=== PATIENT | female | born 1960 | race Caucasian/White ===

== ENCOUNTER 2017-05-20 10:17 | Emergency (ER) | payer OTHER ==
[2017-05-20] MEDS ORDERED: LORazepam 2 MG/ML INJ IVP ONE (11:00)
--- NOTE | 2017-05-20 11:04 | EDPHY ---
H & P Time Seen by Provider: 05/20/17 10:39 HPI/ROS: CHIEF COMPLAINT: Seizure HISTORY OF PRESENT ILLNESS: 56-year-old female with alcoholism presents with a generalized seizure. Last alcoholic beverage was 3-4 days ago. This morning she was sitting with her boyfriend and had a witnessed generalized seizure. She did not hurt herself and feels back to her baseline mental status. She has a history of prior alcohol withdrawal seizures. REVIEW OF SYSTEMS: Constitutional: No fever, no chills Eyes: No visual changes ENT: No sore throat Respiratory: No cough, no shortness of breath Cardiac: No chest pain Gastrointestinal: No nausea, no vomiting, no abdominal pain Genitourinary: No hematuria, no dysuria Musculoskeletal: No leg pain or swelling Skin: No rash Neurological: No headache, no weakness Psychiatric: No depression Past Medical/Surgical History: Alcoholism Social History: Single Smoking Status: Former smoker Physical Exam: General Appearance: Alert, pleasant Eyes: Pupils equal and round, no conjunctival pallor or injection ENT, Mouth: Mucous membranes moist Neck: Normal inspection Respiratory: Lungs are clear to auscultation Cardiovascular: Regular rate and rhythm Gastrointestinal: Abdomen is soft and nontender Neurological: Alert, oriented x3, mild resting tremor of the upper extremities , cranial nerves II through XII intact, motor 5/5, sensory intact to light touch , normal gait Skin: Warm and dry, no rash Extremities: Nontender, no pedal edema Psychiatric: Mood and affect normal Constitutional: Initial Vital Signs Temperature (C) 37.1 C 05/20/17 10:21 Heart Rate 101 H 05/20/17 10:21 Blood Pressure 138/95 H 05/20/17 10:21 O2 Sat (%) 90 L 05/20/17 10:21 O2 Delivery Mode Room Air Allergies/Adverse Reactions: No Allergies [NKA] Allergy (Unknown, Verified 01/27/12 12:57) Unknown Home Medications: Medication Instructions Recorded Disulfiram [Antabuse] 500 mg PO 06/21/12 FLUoxetine [Prozac 10 MG (RX)] 06/21/12 LORazepam [Ativan 1 mg (RX)] 1 mg PO TID PRN #12 tab 11/02/12 Ondansetron Odt [Zofran Odt] 4 mg PO Q4PRN PRN #4 tab 11/02/12 busPIRone HCL [Buspar] 10 mg PO 11/02/12 LORazepam [Ativan (RX)] 1 mg PO Q12 PRN #6 tab 05/20/17 Medical Decision Making ED Course/Re-evaluation: This patient presents after an alcohol withdrawal seizure. Ativan 1 mg IV given for mild tremulousness. She refuses to go to the arc and wishes to manage the alcohol withdrawal on her own. Differential Diagnosis: Differential diagnosis includes though it is not limited to status epilepticus, hypoglycemia, intracranial hemorrhage, CVA, benzodiazepine withdrawal, alcohol withdrawal, epilepsy. - Data Points Laboratory Results: Laboratory Results 05/20/17 10:00 05/20/17 10:00 05/20/17 05/20/17 10:00 10:00 WBC 10.82 10^3/uL H 10^3/uL (3.80-9.50) RBC 4.70 10^6/uL 10^6/uL (4.18-5.33) Hgb 15.2 g/dL g/dL (12.6-16.3) Hct 44.6 % % (38.0-47.0) MCV 94.9 fL fL (81.5-99.8) MCH 32.3 pg pg (27.9-34.1) MCHC 34.1 g/dL g/dL (32.4-36.7) RDW 13.2 % % (11.5-15.2) Plt Count 302 10^3/uL 10^3/uL (150-400) MPV 9.3 fL fL (8.7-11.7) Neut % (Auto) 73.6 % % (39.3-74.2) Lymph % (Auto) 20.5 % % (15.0-45.0) [place] % (Auto) 3.9 % L % (4.5-13.0) Eos % (Auto) 0.4 % L % (0.6-7.6) Baso % (Auto) 1.0 % % (0.3-1.7) Nucleat RBC Rel Count 0.0 % % (0.0-0.2) Absolute Neuts (auto) 7.97 10^3/uL H 10^3/uL (1.70-6.50) Absolute Lymphs (auto) 2.22 10^3/uL 10^3/uL (1.00-3.00) Absolute Monos (auto) 0.42 10^3/uL 10^3/uL (0.30-0.80) Absolute Eos (auto) 0.04 10^3/uL 10^3/uL (0.03-0.40) Absolute Basos (auto) 0.11 10^3/uL H 10^3/uL (0.02-0.10) Absolute Nucleated RBC 0.00 10^3/uL 10^3/uL (0-0.01) Immature Gran % 0.6 % % (0.0-1.1) Immature Gran # 0.06 10^3/uL 10^3/uL (0.00-0.10) Sodium 137 mEq/L mEq/L (134-144) Potassium 4.2 mEq/L mEq/L (3.5-5.2) Chloride 99 mEq/L mEq/L (97-110) Carbon Dioxide 15 mEq/l L mEq/l (22-31) Anion Gap 23 mEq/L H mEq/L (8-16) BUN 9 mg/dL mg/dL (7-23) Creatinine 1.0 mg/dL mg/dL (0.6-1.0) Estimated GFR 57 Glucose 153 mg/dL H mg/dL (70-100) Calcium 9.1 mg/dL mg/dL (8.5-10.4) Medications Given: Discontinued Medications Sodium Chloride (Ns) 1,000 mls @ 0 mls/hr IV ONCE ONE; Wide Open PRN Reason: Protocol Stop: 05/20/17 11:26 Last Admin: 05/20/17 11:29 Dose: 1,000 mls Lorazepam (Ativan Injection) 1 mg IVP EDNOW ONE Stop: 05/20/17 11:01 Last Admin: 05/20/17 11:09 Dose: 1 mg Departure - Departure Disposition: Home, Routine, Self-Care Clinical Impression: Alcohol withdrawal seizure Qualifiers: Complication of substance-induced condition: uncomplicated Qualified Code(s): F10.230 - Alcohol dependence with withdrawal, uncomplicated Condition: Good Instructions: Alcohol Withdrawal (ED) Referrals: Katarina Deras MD [[facility] [place] Primary Care Provider] - 2-3 days without fail Prescriptions: LORazepam [Ativan (RX)] 1 mg PO Q12 PRN #6 tab PRN Reason: Anxiety
[2017-05-20 11:09] LABS: % IMMATURE GRANULYOCYTES 0.6 % (0.0-1.1); ABSOLUTE IMMATURE GRANULOCYTES 0.06 10^3/uL (0.00-0.10); ADD DIFF? NO; ADD MORPH? NO; ADD SCAN? NO; ATYPICAL LYMPHOCYTE FLAG 0 (0-99); FRAGMENT RBC FLAG 0 (0-99); HEMATOCRIT 44.6 % (38.0-47.0); HEMOGLOBIN 15.2 g/dL (12.6-16.3); LEFT SHIFT FLG 0 (0-99); LIPEMIA HEMOLYSIS FLAG 90 (0-99); MEAN CELL HEMOGLOBIN 32.3 pg (27.9-34.1); MEAN CELL HEMOGLOBIN CONCENTR. 34.1 g/dL (32.4-36.7); MEAN CELL VOLUME 94.9 fL (81.5-99.8); MEAN PLATELET VOLUME 9.3 fL (8.7-11.7); PLATELET CLUMPS FLAG 0 (0-99); PLATELET COUNT 302 10^3/uL (150-400); RED CELL DISTRIBUTION WIDTH 13.2 % (11.5-15.2)
[2017-05-20 11:22] LABS: ANION GAP 23 mEq/L (8-16); CALCIUM 9.1 mg/dL (8.5-10.4); CARBON DIOXIDE 15 mEq/l (22-31); CHLORIDE 99 mEq/L (97-110); GLOMERULAR FILTRATION RATE 57; GLUCOSE 153 mg/dL (70-100); POTASSIUM 4.2 mEq/L (3.5-5.2); SODIUM 137 mEq/L (134-144)
[2017-05-20] MEDS ORDERED: NS 1,000 ML IV ONE (11:25)
[2017-05-20 12:58] VITALS: BP 166/88; PULSE 87; RESP 18; TEMP 98.4; O2SAT 98
== END 2017-05-20 12:57 | disposition home or self-care (01) ==
LOC: EDUNIT#
DX: R56.9 Unspecified convulsions (principal); F10.230 Alcohol dependence with withdrawal, uncomplicated; E86.9 Volume depletion, unspecified; Z87.891 Personal history of nicotine dependence
CPT/HCPCS: 96374; J2060

== ENCOUNTER 2017-06-15 14:08 | Observation (INO) | payer OTHER ==
--- NOTE | 2017-06-15 14:51 | CPEKG ---
Heart Rate: 93 RR Interval: 645 P-R Interval: 176 QRSD Interval: 84 QT Interval: 384 QTC Interval: 478 P [place]: 37 QRS [place]: -20 T Wave [place]: 33 EKG Severity - ABNORMAL ECG - EKG Impression: SINUS RHYTHM Electronically Signed By: Rodríguez Gutiérrez 15-Jun-2017 18:55:04
[2017-06-15] MEDS ORDERED: LIDOCAINE 2% VISCOUS 15 ML UDCUP PO ONE (14:57)
[2017-06-15] MEDS ORDERED: MAG HYDROX/AL HYDROX/SIMETH 30 ML UDCUP PO ONE (14:57)
[2017-06-15] MEDS ORDERED: HYOSCYAMINE SULFATE 0.125 MG TAB PO ONE (14:57)
--- NOTE | 2017-06-15 15:22 | EDPHY ---
H & P Stated Complaint: CP since 0430 this AM Time Seen by Provider: 06/15/17 14:53 HPI/ROS: CHIEF COMPLAINT: Chest pain HISTORY OF PRESENT ILLNESS: The patient presents to the ED with chest pain which has been constant since 4 o'clock this morning. The patient reports her pain is worsened with swallowing. She denies any history of exertional chest pain or shortness of breath. 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 The patient has no significant past medical history. There is a history of coronary artery disease in the family. The patient does not smoke. She denies any abdominal pain, vomiting or diarrhea. The patient did take Tums prior to arrival without improvement of her symptoms. REVIEW OF SYSTEMS: A comprehensive 10 point review of systems is otherwise negative aside from elements mentioned in the history of present illness. Source: Patient Exam Limitations: No limitations - Medical/Surgical History Hx Asthma: No Hx Chronic Respiratory Disease: No Hx Diabetes: No Hx Cardiac Disease: No Hx Renal Disease: No Hx Cirrhosis: No Hx Alcoholism: Yes Hx HIV/AIDS: No Hx Splenectomy or Spleen Trauma: No Other PMH: etoh, last drink april 2017 - Social History Smoking Status: Former smoker - Physical Exam Exam: General Appearance: Alert, no distress Eyes: Pupils equal and round no pallor or injection ENT, Mouth: Mucous membranes moist Respiratory: There are no retractions, lungs are clear to auscultation Cardiovascular: Regular rate and rhythm Gastrointestinal: Abdomen is soft and nontender, no masses, bowel sounds normal Neurological: A&O, normal motor function, normal sensory exam, normal cranial nerves Skin: Warm and dry, no rashes Musculoskeletal: Neck is supple nontender Extremities: symmetrical, full range of motion Constitutional: Initial Vital Signs Temperature (C) 37.4 C 06/15/17 14:11 Heart Rate 95 06/15/17 14:11 Respiratory Rate 18 06/15/17 14:11 Blood Pressure 141/102 H 06/15/17 14:11 O2 Sat (%) 94 06/15/17 14:11 O2 Delivery Mode Room Air Allergies/Adverse Reactions: No Allergies [NKA] Allergy (Unknown, Verified 01/27/12 12:57) Unknown Home Medications: Medication Instructions Recorded Disulfiram [Antabuse] 500 mg PO 06/21/12 FLUoxetine [Prozac 10 MG (RX)] 06/21/12 LORazepam [Ativan 1 mg (RX)] 1 mg PO TID PRN #12 tab 11/02/12 Ondansetron Odt [Zofran Odt] 4 mg PO Q4PRN PRN #4 tab 11/02/12 busPIRone HCL [Buspar] 10 mg PO 11/02/12 LORazepam [Ativan (RX)] 1 mg PO Q12 PRN #6 tab 05/20/17 Medical Decision Making - Diagnostics EKG Interpretation: EKG: Complete interpretation has been separately recorded in the [facility] archive. Summary impression: Sinus rhythm, no ischemic changes noted Imaging Results: Imaging Impressions Chest X-Ray 06/15/17 15:53 Impression: Negative portable chest. Chest/Thorax CTA 06/15/17 16:15 Impression: 1. Acute bilateral pulmonary thromboemboli. 2. Hiatal hernia. Results called to Dr. Zachery Danielson at the time of the interpretation. ED Course/Re-evaluation: The patient presents to the ED with acute substernal chest discomfort. She was brought into a room and had an EKG performed immediately which demonstrates no evidence of myocardial infarction. The patient did have some gastrointestinal symptoms with her pain. She was given a GI cocktail without improvement. While in the emergency department she developed severe 10/10 crushing substernal pain. A repeat EKG was performed which demonstrated no evidence of ischemia. I ordered a stat echocardiogram which was interpreted by Dr. Nails as showing no obvious wall motion abnormality. For ongoing evaluation of the patient's severe chest pain is CT pulmonary angiogram was obtained which demonstrates bilateral pulmonary emboli. The patient has no evidence of wall motion abnormality noted on her echocardiogram. She has small volume bilateral pulmonary emboli noted on her CT scan. These appear to be unprovoked. The patient was placed on a athletic monitor. She had serial examinations in the emergency department by myself over a 3 hour period. The patient will require admission to the hospital. I discussed the case with Dr. Rodriguez from the hospitalist service. The patient received Lovenox. Critical care time exclusive of procedures and exclusive of the PA's time was 35 minutes, performed by myself, Rodríguez Gutiérrez MD. The patient presented with acute intermittent chest pain of uncertain etiology. Initially there was a high degree of concern for acute coronary syndrome and possible aortic dissection which required emergent evaluation by the light armored reconnaissance officer, a stat echocardiogram and stat CT scan. Differential Diagnosis: Differential diagnosis considered includes myocardial infarction, aortic dissection, pulmonary embolism, pneumonia, pneumothorax - Data Points Laboratory Results: Laboratory Results 06/15/17 15:13 06/15/17 15:13 06/15/17 06/15/17 06/15/17 15:13 15:13 15:13 WBC 11.69 10^3/uL H 10^3/uL (3.80-9.50) RBC 4.25 10^6/uL 10^6/uL (4.18-5.33) Hgb 13.5 g/dL g/dL (12.6-16.3) Hct 38.9 % % (38.0-47.0) MCV 91.5 fL fL (81.5-99.8) MCH 31.8 pg pg (27.9-34.1) MCHC 34.7 g/dL g/dL (32.4-36.7) RDW 14.6 % % (11.5-15.2) Plt Count 306 10^3/uL 10^3/uL (150-400) MPV 9.2 fL fL (8.7-11.7) Neut % (Auto) 69.1 % % (39.3-74.2) Lymph % (Auto) 23.8 % % (15.0-45.0) [place] % (Auto) 5.5 % % (4.5-13.0) Eos % (Auto) 0.3 % L % (0.6-7.6) Baso % (Auto) 0.8 % % (0.3-1.7) Nucleat RBC Rel Count 0.0 % % (0.0-0.2) Absolute Neuts (auto) 8.09 10^3/uL H 10^3/uL (1.70-6.50) Absolute Lymphs (auto) 2.78 10^3/uL 10^3/uL (1.00-3.00) Absolute Monos (auto) 0.64 10^3/uL 10^3/uL (0.30-0.80) Absolute Eos (auto) 0.03 10^3/uL 10^3/uL (0.03-0.40) Absolute Basos (auto) 0.09 10^3/uL 10^3/uL (0.02-0.10) Absolute Nucleated RBC 0.00 10^3/uL 10^3/uL (0-0.01) Immature Gran % 0.5 % % (0.0-1.1) Immature Gran # 0.06 10^3/uL 10^3/uL (0.00-0.10) D-Dimer 5.11 ug/mLFEU H ug/mLFEU (0.00-0.50) Sodium 134 mEq/L mEq/L (134-144) Potassium 3.7 mEq/L mEq/L (3.5-5.2) Chloride 98 mEq/L mEq/L (97-110) Carbon Dioxide 22 mEq/l mEq/l (22-31) Anion Gap 14 mEq/L mEq/L (8-16) BUN 8 mg/dL mg/dL (7-23) Creatinine 0.8 mg/dL mg/dL (0.6-1.0) Estimated GFR > 60 Glucose 111 mg/dL H mg/dL (70-100) Calcium 9.3 mg/dL mg/dL (8.5-10.4) Total Bilirubin 0.6 mg/dL mg/dL (0.1-1.4) Conjugated Bilirubin 0.2 mg/dL mg/dL (0.0-0.5) Unconjugated Bilirubin 0.4 mg/dL mg/dL (0.0-1.1) AST 34 IU/L IU/L (14-46) ALT 39 IU/L IU/L (9-52) Alkaline Phosphatase 69 IU/L IU/L (38-126) Troponin I < 0.012 ng/mL ng/mL (0.000-0.034) Total Protein 7.0 g/dL g/dL (6.3-8.2) Albumin 3.9 g/dL g/dL (3.5-5.0) Lipase 86 IU/L IU/L (23-300) Medications Given: Discontinued Medications Al Hydroxide/Mg Hydroxide (Maalox Susp) 30 ml PO ONCE ONE Stop: 06/15/17 14:58 Last Admin: 06/15/17 15:06 Dose: 30 ml Hyoscyamine Sulfate (Levsin, Hyomax-Sl) 0.25 mg PO ONCE ONE Stop: 06/15/17 14:58 Last Admin: 06/15/17 15:05 Dose: 0.25 mg Lidocaine (Lidocaine 2% Viscous) 15 ml PO ONCE ONE Stop: 06/15/17 14:58 Last Admin: 06/15/17 15:06 Dose: 15 ml Departure - Departure Disposition: [facility] Inpatient Acute Clinical Impression: Bilateral pulmonary embolism, Acute chest pain Condition: Fair
[2017-06-15 15:23] LABS: % IMMATURE GRANULYOCYTES 0.5 % (0.0-1.1); ABSOLUTE IMMATURE GRANULOCYTES 0.06 10^3/uL (0.00-0.10); ADD DIFF? NO; ADD MORPH? NO; ADD SCAN? NO; ATYPICAL LYMPHOCYTE FLAG 10 (0-99); FRAGMENT RBC FLAG 0 (0-99); HEMATOCRIT 38.9 % (38.0-47.0); HEMOGLOBIN 13.5 g/dL (12.6-16.3); LEFT SHIFT FLG 0 (0-99); LIPEMIA HEMOLYSIS FLAG 90 (0-99); MEAN CELL HEMOGLOBIN 31.8 pg (27.9-34.1); MEAN CELL HEMOGLOBIN CONCENTR. 34.7 g/dL (32.4-36.7); MEAN CELL VOLUME 91.5 fL (81.5-99.8); MEAN PLATELET VOLUME 9.2 fL (8.7-11.7); PLATELET CLUMPS FLAG 10 (0-99); PLATELET COUNT 306 10^3/uL (150-400); RED BLOOD CELL COUNT 4.25 10^6/uL (4.18-5.33); RED CELL DISTRIBUTION WIDTH 14.6 % (11.5-15.2)
[2017-06-15 15:36] LABS: ALANINE AMINOTRANSFERASE 39 IU/L (9-52); ALBUMIN 3.9 g/dL (3.5-5.0); ALKALINE PHOSPHATASE 69 IU/L (38-126); ANION GAP 14 mEq/L (8-16); ASPARTATE AMINOTRANSFERASE 34 IU/L (14-46); BILIRUBIN,TOTAL 0.6 mg/dL (0.1-1.4); BILIRUBIN-CONJUGATED 0.2 mg/dL (0.0-0.5); BILIRUBIN-UNCONJUGATED 0.4 mg/dL (0.0-1.1); CALCIUM 9.3 mg/dL (8.5-10.4); CARBON DIOXIDE 22 mEq/l (22-31); CHLORIDE 98 mEq/L (97-110); CREATININE 0.8 mg/dL (0.6-1.0); GLOMERULAR FILTRATION RATE > 60; GLUCOSE 111 mg/dL (70-100); POTASSIUM 3.7 mEq/L (3.5-5.2); SODIUM 134 mEq/L (134-144)
[2017-06-15 15:46] LABS: TROPONIN I < 0.012 ng/mL (0.000-0.034)
--- NOTE | 2017-06-15 16:00 | CPEKG ---
Heart Rate: 91 RR Interval: 659 P-R Interval: 172 QRSD Interval: 80 QT Interval: 388 QTC Interval: 478 P [place]: 49 QRS [place]: -9 T Wave [place]: 33 EKG Severity - NORMAL ECG - EKG Impression: SINUS RHYTHM Electronically Signed By: Rodríguez Gutiérrez 15-Jun-2017 18:55:55
[2017-06-15] MEDS ORDERED: IOPAMIDOL (ISOVUE 370) 100 ML BTL IV ONE (16:16)
[2017-06-15] MEDS ORDERED: ENOXAPARIN 60 MG/0.6 ML SYR SC ONE (17:20)
[2017-06-15] MEDS ORDERED: fentaNYL 100 MCG/2 ML INJ IVP ONE (18:01)
[2017-06-15] MEDS ORDERED: fentaNYL 100 MCG/2 ML INJ ONE (18:02)
[2017-06-15] MEDS ORDERED: ONDANSETRON DISINTEGRATING 4 MG TAB PO PRN (18:23)
[2017-06-15] MEDS ORDERED: ACETAMINOPHEN 325 MG TAB PO PRN (18:23)
[2017-06-15] MEDS ORDERED: ONDANSETRON 4 MG/2 ML VIAL IVP PRN (18:23)
[2017-06-15] MEDS: LORazepam 0.5 MG TAB PO PRN (19:02)
[2017-06-15] MEDS: OXYCODONE/APAP 5/325 TAB PO PRN (19:02)
--- NOTE | 2017-06-15 19:22 | GHP ---
[f rep st] HISTORY AND PHYSICAL DATE OF ADMISSION: 06/15/2017 CHIEF COMPLAINT: Chest pain. 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 She descri bes it as substernal and partially left-sided, burning periodically in nature and slightly pleuritic . The patient noted that it was not getting better, coming in waves, and therefore presented to the emergency department for evaluation. She waited in the triage area of the ER for a while and then actually left and went and took Tums, thinking that it was more gastrointestinal in origin. When th e Tums did not help, she re-presented to the ED for evaluation. D-dimer was positive, and she was e stablished having a pulmonary embolism. The patient reports 2 DVTs, for both of which she received anticoagulation with Coumadin, which she had difficulty with, as she enjoys green leafy vegetables q uite a lot, and they had a hard time controlling her INR. Otherwise, completed anticoagulation in b oth instances. Says she was ruled out for factor V Leiden but cannot tell me if she had studies per formed on other hypercoagulable conditions. Denies shortness of breath and denies palpitations. PAST MEDICAL HISTORY: DVT x2, one status post vein stripping surgery. 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 Does not smoke. Reports a tendency to drin k alcohol to excess to the point that she passes out but tells me she does this only once a month. FAMILY HISTORY: Positive for pulmonary emboli in her mother. REVIEW OF SYSTEMS: A 10-point review of systems is negative with the exception of that reported in the HPI. PHYSICAL EXAMINATION: VITAL SIGNS: Blood pressure 141/102, heart rate 95, respiratory rate 18, sat ting 94% on room air, 37.4. GENERAL: This is a nervous-appearing, fit, middle-aged female in mild distress. HEENT: Notable for moist mucous membranes. Eye exam is negative for any icterus. CARDI AC: The patient is regular rate and rhythm. PULMONARY: She is clear to auscultation bilaterally. GASTROINTESTINAL: Positive bowel sounds. ABDOMEN: Soft. MUSCULOSKELETAL: Negative for any lowe r extremity edema. SKIN: Negative for any rashes. NEUROLOGIC: She is alert and oriented x3. PSY CHIATRIC: She is very anxious on interview and examination. DATA: White count 11.6. Sodium 134. D-dimer 5.11. Glucose of 111. Troponin less than 0.012. CTA of the chest, which I personally reviewed and interpreted, shows acute bilateral pulmonary embol i. ASSESSMENT AND PLAN: This is a 56-year-old female, presenting with chest pain. 1. Acute pulmonary emboli. This is the patient's third clotting episode since 2001. I suspect str ongly an underlying hypercoagulable state. The patient did not do well on Coumadin secondary to tary limitations. She has been given a dose of Lovenox in the emergency department, which will cove r her this evening. 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 I do suspect this now is an indication for l ifelong anticoagulation. She will need to follow in the outpatient setting with a ladle liner helper for appropriate hypercoagulability workup post acute clotting. 2. Anxiety. The patient is very nervous and anxious on my interview and examination. It is unclea r to me if she is hiding something during our interview. Suspect maybe her alcohol intake is higher than what she is admitting. Have written for low-dose Ativan overnight and have reported our gordo rns to the nurses so they can monitor for evolving withdrawal symptoms. Possibly she is simply stre ssed from acute hospitalization. 3. Acute leukocytosis. Suspect this is a stress response from her acute pulmonary embolism. No in filtrates were seen on CT. We will recheck in the morning. 4. Prophylaxis. She received full-dose Lovenox. We will transition to Xarelto in the morning. DIET: Regular. DISPOSITION: I expect in less than 2 midnights if the patient responds well on telemetry and tolera ave her first doses of anticoagulation. I have discussed the case with the emergency room physician . The patient will be triaged for observation on the medical-surgical floor. /[id number]/MODL
[2017-06-15] MEDS ORDERED: LORazepam 2 MG/ML INJ IVP PRN (19:47)
[2017-06-15] MEDS: chlordiazePOXIDE 25 MG CAP PO SCH (20:17)
[2017-06-16 03:43] VITALS: O2SAT 97
[2017-06-16] MEDS: LORazepam 0.5 MG TAB PO PRN (03:45)
[2017-06-16] MEDS: OXYCODONE/APAP 5/325 TAB PO PRN ×2 (03:56→07:15)
[2017-06-16 05:20] LABS: % IMMATURE GRANULYOCYTES 0.6 % (0.0-1.1); ABSOLUTE IMMATURE GRANULOCYTES 0.04 10^3/uL (0.00-0.10); ADD DIFF? NO; ADD MORPH? NO; ADD SCAN? NO; ATYPICAL LYMPHOCYTE FLAG 10 (0-99); FRAGMENT RBC FLAG 0 (0-99); HEMOGLOBIN 14.2 g/dL (12.6-16.3); LEFT SHIFT FLG 0 (0-99); LIPEMIA HEMOLYSIS FLAG 90 (0-99); MEAN CELL HEMOGLOBIN 32.1 pg (27.9-34.1); MEAN CELL HEMOGLOBIN CONCENTR. 34.6 g/dL (32.4-36.7); MEAN CELL VOLUME 92.6 fL (81.5-99.8); MEAN PLATELET VOLUME 9.4 fL (8.7-11.7); PLATELET CLUMPS FLAG 0 (0-99); PLATELET COUNT 281 10^3/uL (150-400); RED BLOOD CELL COUNT 4.43 10^6/uL (4.18-5.33); RED CELL DISTRIBUTION WIDTH 14.7 % (11.5-15.2)
[2017-06-16 05:37] LABS: POTASSIUM 3.7 mEq/L (3.5-5.2)
[2017-06-16 05:38] LABS: ANION GAP 11 mEq/L (8-16); CALCIUM 9.5 mg/dL (8.5-10.4); CARBON DIOXIDE 24 mEq/l (22-31); CHLORIDE 98 mEq/L (97-110); CREATININE 0.8 mg/dL (0.6-1.0); GLOMERULAR FILTRATION RATE > 60; GLUCOSE 84 mg/dL (70-100); MAGNESIUM 1.9 mg/dL (1.6-2.3); SODIUM 133 mEq/L (134-144)
[2017-06-16 07:44] VITALS: BP 180/118; PULSE 90; RESP 18; TEMP 98.1
[2017-06-16] MEDS ORDERED: RIVAROXABAN 15 MG TAB PO SCH (08:00)
[2017-06-16] MEDS: chlordiazePOXIDE 25 MG CAP PO SCH (08:53)
--- NOTE | 2017-06-16 10:24 | ECHO ---
[id number] + + [address] : : [place] [address] : : [phone] + Adult Echocardiographic Report + ------+ :Name: KUSUM HONEYCUTT Date: 06/15/2017 04:06 PM BP: 106/90 mmH g : : Hospital Admission Number: [id number] Locati on: ER: :: 1960 Gender: Female Height: 65 in : :Age: 56 yrs Race: WH Weight: 130 lb : :Reason For Study: chest pain : : BSA: 1.6 meter s2 : :History: chest pain : + ------+ MMode/2D Measurements \T\ Calculations IVSd: 1.3 cm RVDd: 2.9 cm FS: 28.2 % Ao root diam: LVPWd: 1.0 cm LVIDd: 3.7 cm EDV(Teich): 2.6 cm LVIDs: 2.7 cm 58.9 ml ESV(Teich): 26.3 ml EF(Teich): 55.4 % LVLd ap4: 7.6 cm SV(MOD-sp4): EDV(MOD-sp4): 58.0 ml 91.0 ml LVLs ap4: 6.3 cm ESV(MOD-sp4): 33.0 ml EF(MOD-sp4): 63.7 % Normal Measurement Values: + + :LVIDd (3.5-5.7cm) IVSd (0.6-1.1cm) LVPWd (0.6-1.1cm) Aortic Root (2.0-3.7cm)Left Atrium (1.5-4.0cm): :LV Vol(d) (76-115ml) LV Vol(s) (29-48ml) Ejec Fraction (50-65%)PV George (0.6- 1.2m/s) TV George (0.4-1.0m/s) : :MV E George (0.8-1.0m/s)MV A George (0.3-1.0m/s)LVOT George (0.7-1.2m/s) Asc Ao George ( 0.9-1.8m/s) : + + Doppler Measurements \T\ Calculations MV E max george: Ao V2 max: LV V1 max: PA V2 max: 49.9 cm/sec 119.0 cm/sec 95.3 cm/sec 115.0 cm/sec MV A max george: Ao max PG: LV V1 max PG: PA max P.4 cm/sec 5.7 mmHg 3.6 mmHg 5.3 mmHg MV E/A: 0.56 TR max george: 258.0 cm/sec TR max P.6 mmHg Left Ventricle The left ventricle is normal in size and function. There is mild concentric left ventricular hypertrophy. Ejection Fraction = 55-60%. The left ventricular ejection fraction is calculated at 55.4 %. There is Doppler evidence for diastolic dysfunction. The left ventricular wall motion is normal. Right Ventricle The right ventricle is normal in size and function. Atria The left atrial size is normal. Right atrial size is normal. The atrial septum is aneurysmal. Mitral Valve The mitral valve is normal in structure and function. There is mild mitral regurgitation. Tricuspid Valve The tricuspid valve is normal in structure and function. There is trace tricuspid regurgitation. Right ventricular systolic pressure is 30mmHg. Aortic Valve The aortic valve is trileaflet. There is no aortic stenosis. There is no aortic insufficiency. Pulmonic Valve The pulmonic valve is normal in structure and function. There is no pulmonic valvular regurgitation. Great Vessels The aortic root is normal size. Ascending aorta is 2.1 when indexed to BSA (3.4cm) which is upper limits of normal. Questionable linear echo noted in ascending aorta in the right sternal border view, difficult to rule out intimal flap versus atricfact. Pericardium/Pleural Mildly brightened pericardium with trivial pericardial effusion. Conclusion A two-dimensional transthoracic echocardiogram with M-mode and Doppler was performed. (1) Left ventricular systolic ejection fraction was normal (55-60%) - normal wall motion (2) Mild concentric left ventricular hypertrophy (3) Diastolic dysfunction was present (4) Normal right ventricular size and function (5) Normal atrial dimensions - aneurysmal atrial septal wall (6) Mild mitral regurgitation - borderline posterior leaflet prolapsation (7) Trileaflet aortic valve without sclerosis or appreciable insufficiency (8) Physiologic tricuspid regurgitation - RVSP was normal (9) Grossly normal pulmonic valve without appreciable insufficiency noted (10) No comparison echocardiograms (11) Questionable luminal echodensity to the aorta. Would consider CT with contrast or [place] should there continue to be symptoms without cause. Final Reading Physician: Michael Foreman signed on 06/16/2017 10:22 AM Ordering Physician: Rodríguez Gutiérrez Performed By: Nicole Summers
--- NOTE | 2017-06-16 17:15 | GDS ---
[f rep st] DISCHARGE SUMMARY DISCHARGE DIAGNOSES: 1. Acute bilateral pulmonary emboli. 2. Suspected underlying hereditary hypercoagulable state. 3. Severe alcohol abuse with history of withdrawal. 4. Depression. HISTORY OF PRESENT ILLNESS: A 56-year-old female with a history of 2 previous DVTs, who presents wi th chest pain. For details of patient's initial presentation, please see the history and physical d ated 06/15/2017. CONSULTATIVE SERVICES: None. PROCEDURES: On 06/15/2017, the patient had a CTA of the chest, which confirmed bilateral small volu me pulmonary emboli. On 06/15/2017, the patient had an echocardiogram of the heart that showed norm al RV size and function. HOSPITAL COURSE: 1. The patient was admitted monitored on telemetry overnight. Did not require oxygen supplementati on, and did have some improvement in her reported chest pain. She was treated with Lovenox in the e mergency department, transitioned to Xarelto for what we presumed to be lifelong anticoagulation. S he was given a prescription for 15 mg twice daily for 21 days, and then will have her primary care p linda the ongoing script for Xarelto 20 mg daily. She was provided with a voucher for Xarelto, and instructed to follow with [facility] for evaluation of hypercoagulable state in t he next 2-3 weeks. 2. Alcohol abuse. This was confirmed by discussion with primary care provider. The patient was tr emulous on examination, but did not develop withdrawal during her hospital stay. She did receive 2 doses of Librium while inpatient, being discharged home without any additional medications. PENDING STUDIES: None. FOLLOWUP APPOINTMENTS: 1. With her primary care provider. 2. With [facility] for hypercoagulable workup and ongoing treatment of clots. TIME SPENT: I spent greater than 30 minutes in the planning and coordination of this discharge. /[id number]/MODL
--- NOTE | 2017-06-16 18:23 | ASDISCHSUM ---
Discharge Information Plan Status:Home with No Needs Medically Cleared to Leave: Discharge Date:06/16/2017 11:42 AM CM D/C Disposition:Home, Routine, Self-Care ADT D/C Disposition:Home, Routine, Self-Care Projected Discharge Date:06/16/2017 11:42 AM Transportation at D/C:Family Discharge Delay Reason: Follow-Up Date:06/16/2017 11:42 AM Discharge Slot: Final Diagnosis: Placement Information Patient Contact Information Contact Name:REMIGIO Relationship: Address:[address] City:[place] [facility]Zip Code:[place] [address] Email: Financial Information Financial Class:[employer] Primary Plan Desc:[employer] PPO HMO OPEN ACC LOCAL Primary Plan Number:[id number] Secondary Plan Desc: Secondary Plan Number: Assessment Information Intervention Information
[2017-06-18] MEDS ORDERED: THIAMINE HCL 100 MG TAB PO SCH (09:00)
== END 2017-06-16 11:42 | disposition home or self-care (01) ==
LOC: F3E 18:17
PROVIDERS: ADMIT Hospitalist; ATTEND Hospitalist
DX: I26.99 Other pulmonary embolism without acute cor pulmonale (principal); F10.20 Alcohol dependence, uncomplicated; D72.829 Elevated white blood cell count, unspecified; F32.9 Major depressive disorder, single episode, unspecified; K44.9 Diaphragmatic hernia without obstruction or gangrene; Z87.891 Personal history of nicotine dependence; Z86.718 Personal history of other venous thrombosis and embolism; Z82.49 Family history of ischemic heart disease and other diseases of the circulatory system
CPT/HCPCS: 71010; 71275; 93005; 93306; 96372; 96374; 99291; G0378; J1650; J3010; Q9967

== ENCOUNTER → 2017-06-15 | Emergency (ER) | payer OTHER ==
[2017-06-15 12:39] VITALS: BP 153/106; PULSE 105; RESP 18; TEMP 97.9; O2SAT 95
== END | disposition left against medical advice (07) ==
DX: Z53.21 Procedure and treatment not carried out due to patient leaving prior to being seen by health care provider (principal)

== ENCOUNTER 2017-06-18 07:53 | Emergency (ER) | payer OTHER ==
--- NOTE | 2017-06-18 08:02 | EDPHY ---
H & P Time Seen by Provider: 06/18/17 08:00 HPI/ROS: CHIEF COMPLAINT: Chest pain HISTORY OF PRESENT ILLNESS: Pain was discharged on June 16 the diagnosis of bilateral small volume pulmonary emboli, on Xarelto, has not missed any doses since discharge. She presents today with anxiety and chest pain which is substernal and radiates a little bit to the left. Says comes and goes and lasts for about seconds to maximum 1 minutes when it is present. Not related to position or exertion. Not associated with cough or fever. Patient does not feel short of breath. Symptoms mild and persistent since she was discharged from the hospital. REVIEW OF SYSTEMS: Eye: no change in vision ENT: no sore throat Cardiac: HPI, no syncope Pulmonary: no cough or SOB Abdomen: no vomiting, diarrhea, abdominal pain Musculoskeletal: no back pain Skin: no rash Neuro: no headache Constitutional: no fever : no urinary symptoms A comprehensive 10 point review of systems is otherwise negative aside from elements mentioned in the history of present illness. PAST MEDICAL HISTORY: Pulmonary embolism, alcoholism, ACL left leg. Discharge summary dated 06/16/2017 personally reviewed includes depression and bilateral pulmonary emboli. Social history: For alcohol, last sober in October of this year, last drink yesterday. History of at least 1 withdrawal seizure. General Appearance: Alert and conversant, cooperative. Eyes: No scleral icterus. ENT, Mouth: Normal mucous membranes. Respiratory: Normal respiratory effort, breath sounds equal, lungs are clear to auscultation. Cardiovascular: Regular rate and rhythm. No murmur. Gastrointestinal: Abdomen is soft and non tender. Neurological: Alert and oriented x3. Normally conversant. Face symmetric, normal movement and sensation in all extremities. Mildly tremulous. Skin: Warm and dry, no rashes. Musculoskeletal: No peripheral edema and no joint swelling. No calf tenderness. Psychiatric: Not agitated. Not hallucinating. Emergency Department course/MDM: Vital signs viewed O2 sat 97% and heart rate 106. Patient warned that her chest pain may persist intermittently for the next couple of weeks with her recent diagnosis of pulmonary embolism. I think it is unlikely she sustained a new PE with O2 sat of 97% and having not missed any of her anticoagulant does. Her elevated heart rate of 93 EKG likely consistent with alcohol withdrawal, history of no alcohol for the last 12 hours, feeling anxious and tremulous, tremulous on exam. Ativan 2 mg IV. Offered [facility] detox if she wants outpatient benzodiazepines, patient declined. 850: Additional 2 mg IV Ativan. Smoking Status: Former smoker Constitutional: Initial Vital Signs Temperature (C) 36.9 C 06/18/17 07:55 Heart Rate 106 H 06/18/17 07:55 Respiratory Rate 22 H 06/18/17 07:55 Blood Pressure 150/118 H 06/18/17 07:55 O2 Sat (%) 97 06/18/17 07:55 O2 Delivery Mode Room Air Allergies/Adverse Reactions: No Allergies [NKA] Allergy (Unknown, Verified 06/18/17 07:54) Unknown Home Medications: Medication Instructions Recorded Cholecalciferol Vit D3 [Vitamin D3 1,000 units PO DAILY 06/15/17 (*)] FLUoxetine HCL [Fluoxetine HCl] 40 mg PO DAILY 06/15/17 Herbals/Supplements -Info Only 1 ea PO DAILY 06/15/17 LORazepam [Ativan (*)] 1 mg PO DAILY PRN 06/15/17 Multivitamins [Multivitamin (*)] 1 tab PO DAILY 06/15/17 [place]-3 Fatty Acids [Fish Oil 1000 1,000 mg PO DAILY 06/15/17 mg (*)] Ondansetron Odt [Zofran Odt 4 mg 4 mg PO BID PRN 06/15/17 (*)] Vitamin B Complex [B Complex] 1 tab PO DAILY 06/15/17 Ondansetron HCl [Zofran] 4 mg PO Q6 PRN #30 tablet 06/16/17 Rivaroxaban [Xarelto 15mg (*)] 15 mg PO BIDMEAL #42 tab 06/16/17 oxyCODONE/APAP 5/325 [Percocet 1 tab PO Q4HRS PRN #10 tab 06/16/17 5/325 (*)] Medical Decision Making - Diagnostics EKG Interpretation: 12-lead EKG interpreted by me; official reading is in trace master. My interpretation is sinus rhythm with borderline left axis but no acute ischemic changes. Rate 93. Differential Diagnosis: Differential diagnosis considered for chest pain including but not limited to myocardial ischemia, aortic dissection, pericarditis, pulmonary embolus, chest wall pain, pleural inflammation and pulmonary infectious causes. - Data Points Laboratory Results: Laboratory Results 06/18/17 08:15 06/18/17 08:15 06/18/17 06/18/17 08:15 08:15 WBC 6.43 10^3/uL 10^3/uL (3.80-9.50) RBC 4.33 10^6/uL 10^6/uL (4.18-5.33) Hgb 14.0 g/dL g/dL (12.6-16.3) Hct 41.1 % % (38.0-47.0) MCV 94.9 fL fL (81.5-99.8) MCH 32.3 pg pg (27.9-34.1) MCHC 34.1 g/dL g/dL (32.4-36.7) RDW 15.5 % H % (11.5-15.2) Plt Count 289 10^3/uL 10^3/uL (150-400) MPV 9.1 fL fL (8.7-11.7) Neut % (Auto) 43.0 % % (39.3-74.2) Lymph % (Auto) 41.2 % % (15.0-45.0) [place] % (Auto) 9.3 % % (4.5-13.0) Eos % (Auto) 4.7 % % (0.6-7.6) Baso % (Auto) 0.9 % % (0.3-1.7) Nucleat RBC Rel Count 0.0 % % (0.0-0.2) Absolute Neuts (auto) 2.76 10^3/uL 10^3/uL (1.70-6.50) Absolute Lymphs (auto) 2.65 10^3/uL 10^3/uL (1.00-3.00) Absolute Monos (auto) 0.60 10^3/uL 10^3/uL (0.30-0.80) Absolute Eos (auto) 0.30 10^3/uL 10^3/uL (0.03-0.40) Absolute Basos (auto) 0.06 10^3/uL 10^3/uL (0.02-0.10) Absolute Nucleated RBC 0.00 10^3/uL 10^3/uL (0-0.01) Immature Gran % 0.9 % % (0.0-1.1) Immature Gran # 0.06 10^3/uL 10^3/uL (0.00-0.10) Sodium 141 mEq/L mEq/L (134-144) Potassium 4.0 mEq/L mEq/L (3.5-5.2) Chloride 105 mEq/L mEq/L (97-110) Carbon Dioxide 23 mEq/l mEq/l (22-31) Anion Gap 13 mEq/L mEq/L (8-16) BUN 15 mg/dL mg/dL (7-23) Creatinine 0.8 mg/dL mg/dL (0.6-1.0) Estimated GFR > 60 Glucose 94 mg/dL mg/dL (70-100) Calcium 9.5 mg/dL mg/dL (8.5-10.4) Medications Given: Discontinued Medications Sodium Chloride (Ns) 1,000 mls @ 0 mls/hr IV EDNOW ONE; Wide Open PRN Reason: Protocol Stop: 06/18/17 08:13 Last Admin: 06/18/17 08:16 Dose: 1,000 mls Lorazepam (Ativan Injection) 2 mg IVP EDNOW ONE Stop: 06/18/17 08:13 Last Admin: 06/18/17 08:16 Dose: 2 mg Lorazepam (Ativan Injection) 2 mg IVP EDNOW ONE Stop: 06/18/17 08:52 Last Admin: 06/18/17 08:52 Dose: 2 mg Departure - Departure Disposition: Home, Routine, Self-Care Clinical Impression: Bilateral pulmonary embolism Chest pain Qualifiers: Chest pain type: unspecified Qualified Code(s): R07.9 - Chest pain, unspecified Alcohol withdrawal Qualifiers: Complication of substance-induced condition: uncomplicated Qualified Code(s): F10.230 - Alcohol dependence with withdrawal, uncomplicated Condition: Good Instructions: Chest Pain (ED) Referrals: Aggie Lowry MD [Primary Care Provider] - As per Instructions
--- NOTE | 2017-06-18 08:07 | CPEKG ---
Heart Rate: 93 RR Interval: 645 P-R Interval: 172 QRSD Interval: 74 QT Interval: 360 QTC Interval: 448 P [place]: 46 QRS [place]: -23 T Wave [place]: 34 EKG Severity - OTHERWISE NORMAL ECG - EKG Impression: SINUS RHYTHM EKG Impression: BORDERLINE LEFT AXIS DEVIATION Electronically Signed By: Nicholas Schultz 18-Jun-2017 08:16:00
[2017-06-18] MEDS ORDERED: NS 1,000 ML IV ONE (08:12)
[2017-06-18] MEDS ORDERED: LORazepam 2 MG/ML INJ IVP ONE ×2 (08:12→08:51)
[2017-06-18 08:22] LABS: % IMMATURE GRANULYOCYTES 0.9 % (0.0-1.1); ABSOLUTE IMMATURE GRANULOCYTES 0.06 10^3/uL (0.00-0.10); ADD DIFF? NO; ADD MORPH? NO; ADD SCAN? NO; ATYPICAL LYMPHOCYTE FLAG 10 (0-99); FRAGMENT RBC FLAG 0 (0-99); HEMATOCRIT 41.1 % (38.0-47.0); LEFT SHIFT FLG 0 (0-99); LIPEMIA HEMOLYSIS FLAG 90 (0-99); MEAN CELL HEMOGLOBIN 32.3 pg (27.9-34.1); MEAN CELL HEMOGLOBIN CONCENTR. 34.1 g/dL (32.4-36.7); MEAN CELL VOLUME 94.9 fL (81.5-99.8); MEAN PLATELET VOLUME 9.1 fL (8.7-11.7); PLATELET CLUMPS FLAG 30 (0-99); PLATELET COUNT 289 10^3/uL (150-400); RED BLOOD CELL COUNT 4.33 10^6/uL (4.18-5.33); RED CELL DISTRIBUTION WIDTH 15.5 % (11.5-15.2)
[2017-06-18 08:41] LABS: ANION GAP 13 mEq/L (8-16); CALCIUM 9.5 mg/dL (8.5-10.4); CARBON DIOXIDE 23 mEq/l (22-31); CHLORIDE 105 mEq/L (97-110); CREATININE 0.8 mg/dL (0.6-1.0); GLOMERULAR FILTRATION RATE > 60; GLUCOSE 94 mg/dL (70-100); SODIUM 141 mEq/L (134-144)
[2017-06-18] MEDS ORDERED: LORazepam 2 MG/ML INJ ONE (08:50)
[2017-06-18 09:18] VITALS: BP 163/118; PULSE 88; RESP 16; TEMP 98.1; O2SAT 92
== END 2017-06-18 09:17 | disposition home or self-care (01) ==
DX: I26.99 Other pulmonary embolism without acute cor pulmonale (principal); F10.230 Alcohol dependence with withdrawal, uncomplicated; E86.9 Volume depletion, unspecified; Z87.891 Personal history of nicotine dependence
CPT/HCPCS: 96374; J2060

== ENCOUNTER 2017-06-24 17:46 | Emergency (ER) | payer OTHER ==
[2017-06-24 17:52] VITALS: RESP 16; TEMP 97.7
--- NOTE | 2017-06-24 18:28 | EDPHY ---
H & P Time Seen by Provider: 06/24/17 18:19 HPI/ROS: CHIEF COMPLAINT: Vaginal bleeding HISTORY OF PRESENT ILLNESS: The patient is a 56-year-old female who presents to the emergency department with vaginal bleeding. She was diagnosed with bilateral pulmonary emboli with underlying hereditary hypercoagulable state. She was discharged from the hospital on 06/15/2017. She was started on Xarelto. The patient was seen in the emergency department on 06/18/2017 for chest discomfort. She was ultimately discharged again. Patient presents today because she has had vaginal bleeding. The patient states that she started her menstrual. 2-3 days ago. She has not had menstrual period for 3 months. She was evaluated by her car stereo installer previously and was told that her FSH was low and she was in the menopausal range. Bleeding is 2-3 times her normal menses. It was worse today. She is not lightheaded or dizzy. No chest pain or shortness of breath. REVIEW OF SYSTEMS: My complete review of systems is negative except as mentioned in the HPI. Past Medical/Surgical History: Includes pulmonary embolism, alcoholism, ACL repair of the left leg Smoking Status: Former smoker Physical Exam: 36.5, 178/106, 70, 16, 98% on room air GENERAL: Well-appearing, in no acute distress, alert. HEENT: Eyes normal to inspection, normal pharynx, no signs of dehydration. NECK: No thyromegaly, no lymphadenopathy, supple. RESPIRATORY: Clear to auscultation bilaterally, no rales, rhonchi or wheezing. CVS: Regular rate and rhythm, no rubs, murmurs, or gallops. ABDOMEN: Soft, nontender, nondistended, no organomegaly. BACK: Normal to inspection, no CVA tenderness. SKIN: Normal color, no rash, warm, dry. No pallor. EXTREMITIES: No pedal edema, no calf tenderness, no Homans sign or cords, no joint swelling. NEURO/PSYCH: [Alert and oriented x3, normal mood and affect, normal motor sensory exam. No obvious cranial nerve deficit. Constitutional: Initial Vital Signs Temperature (C) 36.5 C 06/24/17 17:49 Heart Rate 78 06/24/17 17:49 Respiratory Rate 16 06/24/17 17:49 Blood Pressure 178/106 H 06/24/17 17:49 O2 Sat (%) 98 06/24/17 17:49 O2 Delivery Mode Room Air Allergies/Adverse Reactions: No Allergies [NKA] Allergy (Unknown, Verified 06/18/17 07:54) Unknown Home Medications: Medication Instructions Recorded Cholecalciferol Vit D3 [Vitamin D3 1,000 units PO DAILY 06/15/17 (*)] FLUoxetine HCL [Fluoxetine HCl] 40 mg PO DAILY 06/15/17 Herbals/Supplements -Info Only 1 ea PO DAILY 06/15/17 LORazepam [Ativan (*)] 1 mg PO DAILY PRN 06/15/17 Multivitamins [Multivitamin (*)] 1 tab PO DAILY 06/15/17 [place]-3 Fatty Acids [Fish Oil 1000 1,000 mg PO DAILY 06/15/17 mg (*)] Ondansetron Odt [Zofran Odt 4 mg 4 mg PO BID PRN 06/15/17 (*)] Vitamin B Complex [B Complex] 1 tab PO DAILY 06/15/17 Ondansetron HCl [Zofran] 4 mg PO Q6 PRN #30 tablet 06/16/17 Rivaroxaban [Xarelto 15mg (*)] 15 mg PO BIDMEAL #42 tab 06/16/17 oxyCODONE/APAP 5/325 [Percocet 1 tab PO Q4HRS PRN #10 tab 06/16/17 5/325 (*)] Medical Decision Making ED Course/Re-evaluation: In the emergency department I discussed possible etiologies with the patient. I answered all her questions. IV was placed. Laboratory studies were obtained. I reviewed the patient's previous medical record. Patient's hematocrit was 37. FEMALE : [Patient has a normal external pelvic exam. No visible blood. No lesions or discharge. Speculum exam reveals small amount of blood in the vault. There is a small amount of blood coming from the cervical os. No lesions or discharge. I discussed the case with Dr. Redd from the hospitalist service. He felt the patient should continue her Xarelto and follow up with gynecology. I discussed the case with Dr. Kerline Peterson from gynecology. She felt comfortable having the pt follow up as an outpatient. I discussed all the findings and plan with the patient. I answered all her questions. She was given warnings prior to leaving. She will return if she worsens. I discussed the case with Dr. Hollingsworth prior to the patient being discharged. She will arrange close follow-up on Monday. Patient's has an appointment with gynecology on Monday. Differential Diagnosis: Differential includes but is not limited to vaginal bleed, medication reaction, coagulopathy, mass, malignancy, STD, vaginitis, anemia, , ectopic , - Data Points Laboratory Results: Laboratory Results 06/24/17 18:50 06/24/17 18:50 06/24/17 06/24/17 06/24/17 18:50 18:50 18:50 WBC RBC Hgb Hct MCV MCH MCHC RDW Plt Count MPV Neut % (Auto) Lymph % (Auto) [place] % (Auto) Eos % (Auto) Baso % (Auto) Nucleat RBC Rel Count Absolute Neuts (auto) Absolute Lymphs (auto) Absolute Monos (auto) Absolute Eos (auto) Absolute Basos (auto) Absolute Nucleated RBC Immature Gran % Immature Gran # PT 23.9 SEC H SEC (12.0-15.0) INR 2.12 H (0.83-1.16) APTT 33.0 SEC SEC (23.0-38.0) Sodium 135 mEq/L mEq/L (134-144) Potassium 3.3 mEq/L L mEq/L (3.5-5.2) Chloride 100 mEq/L mEq/L (97-110) Carbon Dioxide 24 mEq/l mEq/l (22-31) Anion Gap 11 mEq/L mEq/L (8-16) BUN 17 mg/dL mg/dL (7-23) Creatinine 0.8 mg/dL mg/dL (0.6-1.0) Estimated GFR > 60 Glucose 82 mg/dL mg/dL (70-100) Calcium 9.4 mg/dL mg/dL (8.5-10.4) Beta HCG, Qual NEGATIVE 06/24/17 18:50 WBC 8.59 10^3/uL 10^3/uL (3.80-9.50) RBC 3.99 10^6/uL L 10^6/uL (4.18-5.33) Hgb 12.8 g/dL g/dL (12.6-16.3) Hct 37.7 % L % (38.0-47.0) MCV 94.5 fL fL (81.5-99.8) MCH 32.1 pg pg (27.9-34.1) MCHC 34.0 g/dL g/dL (32.4-36.7) RDW 15.0 % % (11.5-15.2) Plt Count 304 10^3/uL 10^3/uL (150-400) MPV 9.2 fL fL (8.7-11.7) Neut % (Auto) 54.9 % % (39.3-74.2) Lymph % (Auto) 31.4 % % (15.0-45.0) [place] % (Auto) 9.9 % % (4.5-13.0) Eos % (Auto) 2.4 % % (0.6-7.6) Baso % (Auto) 0.8 % % (0.3-1.7) Nucleat RBC Rel Count 0.0 % % (0.0-0.2) Absolute Neuts (auto) 4.71 10^3/uL 10^3/uL (1.70-6.50) Absolute Lymphs (auto) 2.70 10^3/uL 10^3/uL (1.00-3.00) Absolute Monos (auto) 0.85 10^3/uL H 10^3/uL (0.30-0.80) Absolute Eos (auto) 0.21 10^3/uL 10^3/uL (0.03-0.40) Absolute Basos (auto) 0.07 10^3/uL 10^3/uL (0.02-0.10) Absolute Nucleated RBC 0.00 10^3/uL 10^3/uL (0-0.01) Immature Gran % 0.6 % % (0.0-1.1) Immature Gran # 0.05 10^3/uL 10^3/uL (0.00-0.10) PT INR APTT Sodium Potassium Chloride Carbon Dioxide Anion Gap BUN Creatinine Estimated GFR Glucose Calcium Beta HCG, Qual Departure - Departure Disposition: Home, Routine, Self-Care Clinical Impression: Vaginal bleeding Condition: Good Instructions: Dysfunctional Uterine Bleeding (ED) Additional Instructions: You need close follow-up with your primary care physician as well as a car stereo installer. Return to the emergency department if you had increased bleeding , lightheadedness, dizziness, chest pain or any other concerns. Continue to take your Xarelto. Referrals: Aggie Lowry MD [Primary Care Provider] - 1-2 days without fail Kerline Peterson MD [Medical Doctor] - 2-3 days without fail
[2017-06-24 19:00] LABS: % IMMATURE GRANULYOCYTES 0.6 % (0.0-1.1); ABSOLUTE IMMATURE GRANULOCYTES 0.05 10^3/uL (0.00-0.10); ADD DIFF? NO; ADD MORPH? NO; ADD SCAN? NO; ATYPICAL LYMPHOCYTE FLAG 0 (0-99); FRAGMENT RBC FLAG 0 (0-99); HEMATOCRIT 37.7 % (38.0-47.0); HEMOGLOBIN 12.8 g/dL (12.6-16.3); LEFT SHIFT FLG 0 (0-99); LIPEMIA HEMOLYSIS FLAG 90 (0-99); MEAN CELL HEMOGLOBIN 32.1 pg (27.9-34.1); MEAN CELL VOLUME 94.5 fL (81.5-99.8); MEAN PLATELET VOLUME 9.2 fL (8.7-11.7); PLATELET CLUMPS FLAG 20 (0-99); PLATELET COUNT 304 10^3/uL (150-400); RED BLOOD CELL COUNT 3.99 10^6/uL (4.18-5.33)
[2017-06-24 19:10] LABS: INR 2.12 (0.83-1.16); PROTIME(PATIENT) 23.9 SEC (12.0-15.0)
[2017-06-24 19:16] LABS: ANION GAP 11 mEq/L (8-16); CALCIUM 9.4 mg/dL (8.5-10.4); CARBON DIOXIDE 24 mEq/l (22-31); CHLORIDE 100 mEq/L (97-110); CREATININE 0.8 mg/dL (0.6-1.0); GLOMERULAR FILTRATION RATE > 60; GLUCOSE 82 mg/dL (70-100); POTASSIUM 3.3 mEq/L (3.5-5.2); SODIUM 135 mEq/L (134-144)
[2017-06-24 20:19] VITALS: BP 167/117; PULSE 86; O2SAT 96
== END 2017-06-24 20:17 | disposition home or self-care (01) ==
DX: N93.9 Abnormal uterine and vaginal bleeding, unspecified (principal); Z87.891 Personal history of nicotine dependence

== ENCOUNTER 2017-07-20 09:09 | Inpatient (IN) | payer OTHER ==
--- NOTE | 2017-07-20 09:25 | CPEKG ---
Heart Rate: 109 RR Interval: 550 P-R Interval: 168 QRSD Interval: 76 QT Interval: 300 QTC Interval: 405 P [place]: 80 QRS [place]: -23 T Wave [place]: 34 EKG Severity - OTHERWISE NORMAL ECG - EKG Impression: SINUS TACHYCARDIA EKG Impression: BORDERLINE LEFT AXIS DEVIATION Electronically Signed By: Manoj Harry 20-Jul-2017 15:54:10
[2017-07-20] MEDS ORDERED: NS 1,000 ML IV ONE (09:33)
[2017-07-20 09:42] LABS: % IMMATURE GRANULYOCYTES 0.7 % (0.0-1.1); ABSOLUTE IMMATURE GRANULOCYTES 0.14 10^3/uL (0.00-0.10); ADD DIFF? NO; ADD MORPH? NO; ADD SCAN? NO; ATYPICAL LYMPHOCYTE FLAG 0 (0-99); FRAGMENT RBC FLAG 20 (0-99); HEMOGLOBIN 13.2 g/dL (12.6-16.3); LEFT SHIFT FLG 10 (0-99); LIPEMIA HEMOLYSIS FLAG 90 (0-99); MEAN CELL HEMOGLOBIN 32.1 pg (27.9-34.1); MEAN CELL HEMOGLOBIN CONCENTR. 35.7 g/dL (32.4-36.7); MEAN PLATELET VOLUME 10.8 fL (8.7-11.7); PLATELET CLUMPS FLAG 0 (0-99); PLATELET COUNT 233 10^3/uL (150-400); RED BLOOD CELL COUNT 4.11 10^6/uL (4.18-5.33); RED CELL DISTRIBUTION WIDTH 15.7 % (11.5-15.2)
[2017-07-20] MEDS ORDERED: LORazepam 1 MG TAB PO ONE (09:47)
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
[2017-07-20 10:26] LABS: ANION GAP 14 mEq/L (8-16); CARBON DIOXIDE 24 mEq/l (22-31); CHLORIDE 89 mEq/L (97-110); GLOMERULAR FILTRATION RATE 57; GLUCOSE 122 mg/dL (70-100); SODIUM 127 mEq/L (134-144)
[2017-07-20 10:28] LABS: APTT 27.9 SEC (23.0-38.0); INR 1.05 (0.83-1.16); PROTIME(PATIENT) 13.6 SEC (12.0-15.0)
[2017-07-20 10:31] LABS: POTASSIUM 2.5 mEq/L (3.5-5.2)
[2017-07-20] MEDS ORDERED: POTASSIUM CL 20 MEQ PKT PO ONE (10:34)
[2017-07-20] MEDS ORDERED: MAGNESIUM SULF 1 GM/DEXTROSE 100 ML IV ONE (10:35)
[2017-07-20 10:39] LABS: TROPONIN I 0.015 ng/mL (0.000-0.034)
[2017-07-20] MEDS ORDERED: IOPAMIDOL (ISOVUE 370) 100 ML BTL IV ONE (10:42)
[2017-07-20] MEDS ORDERED: ONDANSETRON DISINTEGRATING 4 MG TAB PO ONE (11:46)
[2017-07-20] MEDS: POTASSIUM Cl (KCl) 20 MEQ in D5W 1,000 ML IV SCH (12:09)
[2017-07-20] MEDS ORDERED: AZITHROMYCIN 250 MG TAB PO ONE (13:21)
[2017-07-20] MEDS ORDERED: PROTOCOL MAGNESIUM 1 DOSE IV PRN (14:50)
[2017-07-20] MEDS ORDERED: PROTOCOL POTASSIUM 1 DOSE MISC PRN (14:50)
[2017-07-20] MEDS ORDERED: PROTOCOL K PHOSPHATE 1 DOSE IV PRN (14:50)
[2017-07-20] MEDS ORDERED: QUEtiapine FUMARATE 25 MG TAB PO PRN (15:16)
[2017-07-20] MEDS ORDERED: chlordiazePOXIDE 25 MG CAP PO PRN (15:18)
[2017-07-20] MEDS ORDERED: IPRATROPIUM/ALBUTEROL 3 ML DEYVIAL IH PRN (15:23)
[2017-07-20] MEDS ORDERED: NS 1,000 ML IV SCH (15:30)
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
[2017-07-20] MEDS: RIVAROXABAN 20 MG TAB PO SCH ×2 (15:58→18:03)
[2017-07-20] MEDS: ACETAMINOPHEN 325 MG TAB PO PRN (17:37)
[2017-07-20] MEDS: THIAMINE HCL 500 MG in NS 100 ML IV SCH (17:38)
[2017-07-20 21:27] LABS: MAGNESIUM 1.9 mg/dL (1.6-2.3); POTASSIUM 2.9 mEq/L (3.5-5.2)
[2017-07-20] MEDS ORDERED: POTASSIUM CL 10 MEQ TAB PO ONE (22:06)
[2017-07-21] MEDS: POTASSIUM Cl (KCl) 20 MEQ in D5W 1,000 ML IV SCH ×2 (04:33→20:10)
[2017-07-21 05:29] LABS: % IMMATURE GRANULYOCYTES 0.6 % (0.0-1.1); ABSOLUTE IMMATURE GRANULOCYTES 0.07 10^3/uL (0.00-0.10); ADD DIFF? NO; ADD MORPH? NO; ADD SCAN? NO; ATYPICAL LYMPHOCYTE FLAG 0 (0-99); FRAGMENT RBC FLAG 0 (0-99); HEMATOCRIT 37.1 % (38.0-47.0); HEMOGLOBIN 12.8 g/dL (12.6-16.3); LEFT SHIFT FLG 0 (0-99); LIPEMIA HEMOLYSIS FLAG 90 (0-99); MEAN CELL HEMOGLOBIN 32.7 pg (27.9-34.1); MEAN CELL HEMOGLOBIN CONCENTR. 34.5 g/dL (32.4-36.7); MEAN CELL VOLUME 94.9 fL (81.5-99.8); MEAN PLATELET VOLUME 10.6 fL (8.7-11.7); PLATELET CLUMPS FLAG 0 (0-99); PLATELET COUNT 199 10^3/uL (150-400); RED BLOOD CELL COUNT 3.91 10^6/uL (4.18-5.33); RED CELL DISTRIBUTION WIDTH 15.9 % (11.5-15.2)
[2017-07-21 05:41] LABS: ALANINE AMINOTRANSFERASE 143 IU/L (9-52); ALBUMIN 3.5 g/dL (3.5-5.0); ALKALINE PHOSPHATASE 55 IU/L (38-126); ANION GAP 9 mEq/L (8-16); ASPARTATE AMINOTRANSFERASE 299 IU/L (14-46); BILIRUBIN,TOTAL 0.9 mg/dL (0.1-1.4); BILIRUBIN-CONJUGATED 0.3 mg/dL (0.0-0.5); BILIRUBIN-UNCONJUGATED 0.6 mg/dL (0.0-1.1); CALCIUM 9.1 mg/dL (8.5-10.4); CARBON DIOXIDE 28 mEq/l (22-31); CHLORIDE 95 mEq/L (97-110); CREATININE 0.9 mg/dL (0.6-1.0); GLOMERULAR FILTRATION RATE > 60; GLUCOSE 90 mg/dL (70-100); POTASSIUM 3.7 mEq/L (3.5-5.2); SODIUM 132 mEq/L (134-144); TOTAL PROTEIN 6.3 g/dL (6.3-8.2)
[2017-07-21 05:43] LABS: INR 1.31 (0.83-1.16); PROTIME(PATIENT) 16.3 SEC (12.0-15.0)
[2017-07-21] MEDS: AZITHROMYCIN IV 500 MG in D5W 250 ML IV SCH (09:42)
[2017-07-21] MEDS: FLUoxetine 20 MG CAP PO SCH (09:42)
--- NOTE | 2017-07-21 12:41 | ASMTCMCOM ---
CM Note CM Note Notes: Pt admitted with SOB 2/2 PNA/sepsis. Hx PE, DVT, etoh abuse. On CIWA protocol. Discharged 06/16/17 after H stay for PE. Apparently misunderstood med instructions and readmitted. Also, fell 2 weeks ago and hit head, CT planned before anticoag treatment. Anticipate d/c with no CM needs but will follow for any unanticipated needs. Date Signed: 07/21/2017 12:41 PM Electronically Signed By:NAEEM Kenyon
[2017-07-21] MEDS: THIAMINE HCL 500 MG in NS 100 ML IV SCH (12:48)
[2017-07-21] MEDS ORDERED: POTASSIUM CL 10 MEQ TAB PO ONE ×2 (14:58→19:46)
--- NOTE | 2017-07-21 16:42 | HOSPPROG ---
Hospitalist Progress Note Assessment/Plan: * Pneumonia -improving on ceftriaxone/azithro * Persistent tachycardia -? withdrawal * Recurrent PE/DVT - hypercoagulable state -lifelong anticoagulation recommended but she has not been compliant with this -Xarelto restarted * Etoh abuse -she denies significant use, but severe withdrawal on previous admissions * Nasal fracture -outpatient ENT * Hypokalemia - suspect persistent Etoh abuse Subjective: Feels much better. Taking PO better. Coughing less Objective: Vital Signs Temp Pulse Resp BP Pulse Ox 36.7 C 103 H 21 H 160/106 H 97 07/21/17 15:13 07/21/17 15:16 07/21/17 15:13 07/21/17 15:16 07/21/17 15:13 PT 16.3 SEC (12.0-15.0) H 07/21/17 04:13 INR 1.31 (0.83-1.16) H 07/21/17 04:13 - Physical Exam Constitutional: no apparent distress, appears nourished, not in pain Cardiovascular: regular rate and rhythym, no murmur, rub, or gallop Respiratory: no respiratory distress, no rales or rhonchi, clear to auscultation Gastrointestinal: normoactive bowel sounds, soft, non-tender abdomen, no palpable masses Skin: no rashes or abrasions, no fluctuance, no induration Neurologic: AAOx3, sensation intact bilaterally Psychiatric: interacting appropriately, not anxious, not encephalopathic, thought process linear ICD10 Worksheet Patient Problems: Problems Problem Status Onset Hypokalemia Acute Pneumonia Acute Acute chest pain Acute
[2017-07-21] MEDS: RIVAROXABAN 20 MG TAB PO SCH (18:24)
[2017-07-21] MEDS: ACETAMINOPHEN 325 MG TAB PO PRN (18:24)
[2017-07-21 19:06] LABS: POTASSIUM 3.2 mEq/L (3.5-5.2)
[2017-07-21] MEDS: LORazepam 1 MG TAB PO PRN (20:10)
[2017-07-22 05:18] LABS: ABSOLUTE IMMATURE GRANULOCYTES 0.07 10^3/uL (0.00-0.10); ADD DIFF? NO; ADD MORPH? NO; ADD SCAN? NO; ATYPICAL LYMPHOCYTE FLAG 0 (0-99); FRAGMENT RBC FLAG 0 (0-99); HEMATOCRIT 35.8 % (38.0-47.0); LEFT SHIFT FLG 0 (0-99); LIPEMIA HEMOLYSIS FLAG 80 (0-99); MEAN CELL HEMOGLOBIN CONCENTR. 33.5 g/dL (32.4-36.7); MEAN CELL VOLUME 95.5 fL (81.5-99.8); MEAN PLATELET VOLUME 10.3 fL (8.7-11.7); PLATELET CLUMPS FLAG 0 (0-99); PLATELET COUNT 203 10^3/uL (150-400); RED BLOOD CELL COUNT 3.75 10^6/uL (4.18-5.33); RED CELL DISTRIBUTION WIDTH 15.5 % (11.5-15.2)
[2017-07-22 05:34] LABS: ANION GAP 8 mEq/L (8-16); CARBON DIOXIDE 27 mEq/l (22-31); CHLORIDE 99 mEq/L (97-110); CREATININE 0.9 mg/dL (0.6-1.0); GLOMERULAR FILTRATION RATE > 60; GLUCOSE 92 mg/dL (70-100); MAGNESIUM 1.8 mg/dL (1.6-2.3); POTASSIUM 3.9 mEq/L (3.5-5.2); SODIUM 134 mEq/L (134-144)
[2017-07-22] MEDS ORDERED: POTASSIUM CL 10 MEQ TAB PO ONE ×2 (06:52→09:15)
[2017-07-22] MEDS ORDERED: MAGNESIUM SULF 1 GM/DEXTROSE 100 ML IV ONE ×2 (06:53→09:15)
[2017-07-22] MEDS: POTASSIUM Cl (KCl) 20 MEQ in D5W 1,000 ML IV SCH (09:11)
[2017-07-22] MEDS: FLUoxetine 20 MG CAP PO SCH (09:17)
[2017-07-22] MEDS: THIAMINE HCL 500 MG in NS 100 ML IV SCH (10:01)
[2017-07-22] MEDS: AZITHROMYCIN IV 500 MG in D5W 250 ML IV SCH (11:03)
--- NOTE | 2017-07-22 13:53 | HOSPPROG ---
Hospitalist Progress Note Assessment/Plan: # pneumonia, suspect aspiration - improving on rocephin and azith # tachycardia - resolved # emesis, persistent - would fit with hypoK, aspiration - check swallow study, esophagram # hypoK - better with repletion # etOH abuse - possibly mild w/d - cont CIWA # nasal fracture - outpatient ENT # recent PE - xarelto, lifelong AC Subjective: ambulating; tells me she vomits with every meal, for the last month Objective: Vital Signs Temp Pulse Resp BP Pulse Ox 36.4 C 100 15 152/104 H 100 07/22/17 11:26 07/22/17 11:26 07/22/17 11:26 07/22/17 11:26 07/22/17 11:26 Laboratory Results 07/22/17 04:25 07/22/17 04:25 07/21/17 07/22/17 07/23/17 05:59 05:59 05:59 Intake Total 2500 Output Total 0 Balance 2500 PT 16.3 SEC (12.0-15.0) H 07/21/17 04:13 INR 1.31 (0.83-1.16) H 07/21/17 04:[address] reviewed - Physical Exam Constitutional: no apparent distress, appears nourished Cardiovascular: regular rate and rhythym, no murmur, rub, or gallop Respiratory: no respiratory distress, no rales or rhonchi, clear to auscultation Gastrointestinal: normoactive bowel sounds, soft, non-tender abdomen, no palpable masses ICD10 Worksheet Patient Problems: Problems Problem Status Onset Acute chest pain Acute Pneumonia Acute Hypokalemia Acute
[2017-07-22 18:12] LABS: POTASSIUM 4.1 mEq/L (3.5-5.2)
[2017-07-22] MEDS: RIVAROXABAN 20 MG TAB PO SCH (18:25)
[2017-07-22] MEDS: LORazepam 1 MG TAB PO PRN (21:27)
[2017-07-23 05:34] LABS: % IMMATURE GRANULYOCYTES 1.5 % (0.0-1.1); ADD DIFF? NO; ADD MORPH? NO; ADD SCAN? NO; ATYPICAL LYMPHOCYTE FLAG 0 (0-99); FRAGMENT RBC FLAG 0 (0-99); HEMATOCRIT 34.1 % (38.0-47.0); HEMOGLOBIN 11.5 g/dL (12.6-16.3); LEFT SHIFT FLG 10 (0-99); LIPEMIA HEMOLYSIS FLAG 80 (0-99); MEAN CELL HEMOGLOBIN 32.8 pg (27.9-34.1); MEAN CELL HEMOGLOBIN CONCENTR. 33.7 g/dL (32.4-36.7); MEAN CELL VOLUME 97.2 fL (81.5-99.8); PLATELET CLUMPS FLAG 10 (0-99); PLATELET COUNT 215 10^3/uL (150-400); RED BLOOD CELL COUNT 3.51 10^6/uL (4.18-5.33); RED CELL DISTRIBUTION WIDTH 15.9 % (11.5-15.2)
[2017-07-23 05:45] LABS: ALANINE AMINOTRANSFERASE 117 IU/L (9-52); ALBUMIN 2.9 g/dL (3.5-5.0); ALKALINE PHOSPHATASE 51 IU/L (38-126); ANION GAP 7 mEq/L (8-16); ASPARTATE AMINOTRANSFERASE 123 IU/L (14-46); BILIRUBIN,TOTAL 0.4 mg/dL (0.1-1.4); CALCIUM 9.3 mg/dL (8.5-10.4); CARBON DIOXIDE 27 mEq/l (22-31); CHLORIDE 103 mEq/L (97-110); CREATININE 0.8 mg/dL (0.6-1.0); GLOMERULAR FILTRATION RATE > 60; GLUCOSE 85 mg/dL (70-100); MAGNESIUM 1.8 mg/dL (1.6-2.3); POTASSIUM 3.8 mEq/L (3.5-5.2); SODIUM 137 mEq/L (134-144); TOTAL PROTEIN 5.3 g/dL (6.3-8.2)
[2017-07-23] MEDS ORDERED: POTASSIUM CL 10 MEQ TAB PO ONE (08:03)
[2017-07-23] MEDS ORDERED: MAGNESIUM SULF 1 GM/DEXTROSE 100 ML IV ONE (08:05)
[2017-07-23] MEDS: FLUoxetine 20 MG CAP PO SCH (08:16)
[2017-07-23] MEDS: THIAMINE HCL 100 MG TAB PO SCH (08:16)
[2017-07-23] MEDS: AZITHROMYCIN IV 500 MG in D5W 250 ML IV SCH (08:17)
--- NOTE | 2017-07-23 09:51 | HOSPPROG ---
Hospitalist Progress Note Assessment/Plan: # pneumonia, suspect aspiration - improving on rocephin and azith # tachycardia - resolved # emesis, persistent - would fit with hypoK, aspiration - check upper GI; discussed with Dr Rolle # hypoK - better with repletion # etOH abuse - possibly mild w/d - cont CIWA # nasal fracture - outpatient ENT # recent PE - xarelto, lifelong AC Subjective: still not tolerating PO Objective: Vital Signs Temp Pulse Resp BP Pulse Ox 36.8 C 88 16 176/105 H 98 07/23/17 07:25 07/23/17 07:25 07/23/17 07:25 07/23/17 07:25 07/23/17 07:25 Laboratory Results 07/23/17 04:20 07/23/17 04:20 07/22/17 07/23/17 07/24/17 05:59 05:59 05:59 Intake Total 2500 2200 Output Total 0 Balance 2500 2200 PT 16.3 SEC (12.0-15.0) H 07/21/17 04:13 INR 1.31 (0.83-1.16) H 07/21/17 04:13 swallow study, esophagram reviewed - Physical Exam Constitutional: no apparent distress, appears nourished Cardiovascular: regular rate and rhythym, no murmur, rub, or gallop Respiratory: no respiratory distress, no rales or rhonchi, clear to auscultation Gastrointestinal: normoactive bowel sounds, soft, non-tender abdomen, no palpable masses ICD10 Worksheet Patient Problems: Problems Problem Status Onset Acute chest pain Acute Pneumonia Acute Hypokalemia Acute
[2017-07-23] MEDS: PANTOPRAZOLE SODIUM 40 MG in NS 100 ML IV SCH ×2 (12:13→20:42)
[2017-07-23] MEDS: SUCRALFATE 1 GM TAB PO SCH ×3 (12:13→20:42)
--- NOTE | 2017-07-23 16:09 | ASMTCMCOM ---
CM Note CM Note Notes: Reviewed chart re: d/c poc, pt's progress. Per MD notes, pt still unable to take PO sec to persistent emesis; swallow eval completed for suspected aspiration PNA (results normal); pt to f/u on nasal fx as outpt. Pt would benefit from ETOH resources prior d/c. Anticipate pt will d/c home independently when medically stable. CM will cont to follow. Date Signed: 07/23/2017 04:09 PM Electronically Signed By:Sarika Estes RN
[2017-07-23] MEDS: RIVAROXABAN 20 MG TAB PO SCH (17:07)
[2017-07-23] MEDS: ONDANSETRON 4 MG/2 ML VIAL IVP PRN (18:30)
[2017-07-23] MEDS: LORazepam 1 MG TAB PO PRN ×2 (18:30→23:19)
[2017-07-24 05:56] LABS: MAGNESIUM 1.8 mg/dL (1.6-2.3)
[2017-07-24] MEDS ORDERED: MAGNESIUM SULF 1 GM/DEXTROSE 100 ML IV ONE (07:25)
[2017-07-24] MEDS: SUCRALFATE 1 GM TAB PO SCH ×5 (08:38→20:11)
[2017-07-24] MEDS: FLUoxetine 20 MG CAP PO SCH (08:39)
[2017-07-24] MEDS: THIAMINE HCL 100 MG TAB PO SCH (08:39)
[2017-07-24] MEDS: LORazepam 1 MG TAB PO PRN ×2 (08:43→20:02)
[2017-07-24] MEDS: PANTOPRAZOLE SODIUM 40 MG in NS 100 ML IV SCH ×2 (08:44→20:03)
[2017-07-24] MEDS: AZITHROMYCIN IV 500 MG in D5W 250 ML IV SCH (08:44)
--- NOTE | 2017-07-24 11:40 | HOSPPROG ---
Hospitalist Progress Note Assessment/Plan: # pneumonia, suspect aspiration - improving on rocephin and azith D#5; dc azith today # tachycardia - resolved # emesis, persistent - would fit with hypoK, aspiration - attempted empiric treatment with PPI and carafate - still vomiting today - EGD with Dr Rolle today # hypoK - better with repletion # etOH abuse - no more withdrawal - cont CIWA # nasal fracture - outpatient ENT # recent PE - xarelto, lifelong AC dispo - possible dc tomorrow based on EGD findings Subjective: emesis after eating this morning Objective: Vital Signs Temp Pulse Resp BP Pulse Ox 36.8 C 86 18 165/92 H 95 07/24/17 08:00 07/24/17 08:00 07/24/17 08:00 07/24/17 08:00 07/24/17 08:00 Laboratory Results 07/23/17 04:20 07/24/17 05:15 07/23/17 07/24/17 07/25/17 05:59 05:59 05:59 Intake Total 2200 1550 Balance 2200 1550 PT 16.3 SEC (12.0-15.0) H 07/21/17 04:13 INR 1.31 (0.83-1.16) H 07/21/17 04:[address] Rolle tele reviewed - benign - Physical Exam Constitutional: no apparent distress, appears nourished Cardiovascular: regular rate and rhythym, no murmur, rub, or gallop Respiratory: no respiratory distress, no rales or rhonchi, clear to auscultation Gastrointestinal: normoactive bowel sounds, soft, non-tender abdomen, no palpable masses ICD10 Worksheet Patient Problems: Problems Problem Status Onset Acute chest pain Acute Pneumonia Acute Hypokalemia Acute
--- NOTE | 2017-07-24 15:48 | ASMTCMCOM ---
CM Note CM Note Notes: 07/24/2017 Case Management Note Met w/pt. Discussed needs for alcohol cessation resources. Pt feels well resourced at this time. Pt reports occasionally attending AA meetings. Pt reports attending the [employer] gym, described as a community of people supporting each other through exercise to avoid substance abuse. Pt lives with boyfriend of 5 years Arturo Mo [phone]. Pt reports Arturo lives in sobriety and encourages her to do the same. 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 Pt requested info for a psychiatrist. Her former psychiatrist Reg Angela unexpectedly. Pt has been using her computer system technician for prozac prescription. Encouraged pt to use provider search to find new psychiatrist given potential insurance change with new job. No case management d/c needs identified at this time. Case Management d/c poc: Home independent when medically stable. Case Management available if needs change. Date Signed: 07/24/2017 03:48 PM Electronically Signed By:Kiana Schuster RN
--- NOTE | 2017-07-24 17:08 | PDANEPAE ---
ANE History of Present Illness egd for vomiting ANE Past Medical History - Pulmonary History Hx Oxygen in Use at Home: No Hx Sleep Apnea: No Sleep Apnea Screening Result - Last Documented: Negative Pulmonary History Comment: recent PE and Pna - Endocrine History Hx Diabetes: No ANE Review of Systems Review of Systems: - Exercise capacity Exercise capacity: >=4 METS ANE Patient History - Allergies Allergies/Adverse Reactions: No Allergies [NKA] Allergy (Unknown, Verified 07/20/17 09:10) Unknown - Home Medications Home medications: home medication list seen and reviewed Home Medications: Cholecalciferol Vit D3 [Vitamin D3 (*)] 1,000 units PO DAILY 06/15/17 [Last Taken 06/12/17] FLUoxetine HCL [Fluoxetine HCl] 40 mg PO DAILY 06/15/17 [Last Taken 07/18/17] LORazepam [Ativan (*)] 1 mg PO DAILY PRN 06/15/17 [Last Taken 07/20/17] Multivitamins [Multivitamin (*)] 1 tab PO DAILY 06/15/17 [Last Taken 06/12/17] Vitamin B Complex [B Complex] 1 tab PO DAILY 06/15/17 [Last Taken 06/12/17] QUEtiapine FUMARATE [Seroquel 25 mg (*)] 25 mg PO DAILY PRN 07/20/17 [Last Taken Unknown] Rivaroxaban [Xarelto 10mg (*)] 20 mg PO DAILY 07/20/17 [Last Taken 2 Weeks Ago ~ 07/06/17] - NPO status NPO Status: no food or drink >8 hours NPO Since - Liquids (Date): 07/24/17 NPO Since - Liquids (Time): 11:30 NPO Since - Solids (Date): 07/24/17 NPO Since - Solids (Time): 10:00 - Anes Hx Anes Hx: no prior problems - Smoking Hx Smoking Status: Former smoker - Alcohol Use Alcohol Use: Rarely ANE Labs/Vital Signs - Labs Result Diagrams: 07/23/17 04:20 07/24/17 05:15 - Vital Signs Blood Pressure: 151/94 Heart Rate: 88 Respiratory Rate: 18 O2 Sat (%): 95 Height: 165.1 cm Weight: 62.2 kg ANE Physical Exam - Airway Neck exam: FROM Mallampati Score: Class 2 Mouth exam: normal dental/mouth exam - Pulmonary Pulmonary: no respiratory distress - Cardiovascular Cardiovascular: regular rate and rhythym - ASA Status ASA Status: II ANE Anesthesia Plan Anesthesia Plan: GA with mask (R/B/A explained and pt. agrees to proceed.)
[2017-07-24] MEDS ORDERED: PROPOFOL 200 MG/20 ML VIAL ONE (17:16)
--- NOTE | 2017-07-24 17:44 | GIREPORT ---
[facility] Surgical Services - Endoscopy Department Patient Name: Arlet Cruz Procedure Date: 07/24/2017 5:01 PM Patient Type: Outpatient Attending / ER Physician: Ramana Rolle MD Procedure: Upper GI endoscopy Indications: Nausea with vomiting Providers: Ramana Rolle MD Medicines: General Anesthesia Complications: No immediate complications. Description of Procedure: After obtaining informed consent, the endoscope was passed under direct vision. Throughout the procedure, the patient's blood pressure, pulse, and oxygen saturations were monitored continuous ly. The Endoscope was introduced through the mouth, and advanced to the fourth part of duodenum. The upper GI endoscopy was accomplished with ease. The patient tolerated the procedure well. Findings: Biopsies were taken with a cold forceps for Helicobacter pylori testing using CLOtest. Estimated Blood Loss: Estimated blood loss: none. Post Op Diagnosis: - Biopsies were taken with a cold forceps for Helicobacter pylori testi ng using CLOtest. Recommendation: - Continue present medications. - The findings and recommendations were discussed with the referring physician. Attending Participation: I personally performed the entire procedure. Ramana Rolle MD Ramana Rolle MD 07/24/2017 5:44:32 PM Number of Addenda: 0 Note Initiated On: 07/24/2017 5:01 PM [email or web address]
[2017-07-24] MEDS ORDERED: LR 500 ML IV PRN (17:46)
[2017-07-24] MEDS ORDERED: HYDROCODONE/APAP 5/325 TAB PO PRN (17:46)
[2017-07-24] MEDS ORDERED: LABETALOL HCL 5 MG/ML 20 ML MDV IVP PRN (17:46)
[2017-07-24] MEDS ORDERED: DEXAMETHASONE 4 MG/ML VIAL IVP PRN (17:46)
[2017-07-24] MEDS ORDERED: HYDROmorphONE/DILAUDID 1 MG/ML INJ IVP PRN (17:46)
[2017-07-24] MEDS ORDERED: fentaNYL 100 MCG/2 ML INJ IVP PRN (17:46)
[2017-07-24] MEDS ORDERED: NALOXONE HCL 0.4 MG/ML INJ IVP PRN (17:46)
[2017-07-24] MEDS ORDERED: ONDANSETRON 4 MG/2 ML VIAL IVP PRN (17:46)
[2017-07-24] MEDS ORDERED: ALBUTEROL 3 ML DEYVIAL IH PRN (17:46)
[2017-07-24] MEDS ORDERED: PROMETHAZINE HCL 25 MG/ML INJ IVP PRN (17:46)
[2017-07-24] MEDS ORDERED: METOCLOPRAMIDE 10 MG/2 ML VIAL IVP PRN (17:46)
--- NOTE | 2017-07-24 17:49 | POSTANESTH ---
Post Anesthetic Evaluation Respiratory Status: Normal, Stable Level of Consciousness/Mental Status: Mildly Sleepy, Arousable Pain Control: Adequate, Prn Tx Ordered Nausea/Vomiting Control: Adequate, Prn Tx Ordered Complications Possibly Related to Anesthesia: None Noted
[2017-07-24 19:47] LABS: POTASSIUM 3.4 mEq/L (3.5-5.2)
[2017-07-24] MEDS: RIVAROXABAN 20 MG TAB PO SCH (20:08)
[2017-07-25] MEDS ORDERED: POTASSIUM CL 10 MEQ TAB PO ONE ×2 (02:17→07:17)
[2017-07-25 05:31] LABS: % IMMATURE GRANULYOCYTES 2.8 % (0.0-1.1); ABSOLUTE IMMATURE GRANULOCYTES 0.16 10^3/uL (0.00-0.10); ADD DIFF? NO; ADD MORPH? NO; ADD SCAN? NO; ATYPICAL LYMPHOCYTE FLAG 20 (0-99); FRAGMENT RBC FLAG 0 (0-99); HEMATOCRIT 32.7 % (38.0-47.0); HEMOGLOBIN 11.2 g/dL (12.6-16.3); LEFT SHIFT FLG 20 (0-99); LIPEMIA HEMOLYSIS FLAG 90 (0-99); MEAN CELL HEMOGLOBIN 32.9 pg (27.9-34.1); MEAN CELL HEMOGLOBIN CONCENTR. 34.3 g/dL (32.4-36.7); MEAN CELL VOLUME 96.2 fL (81.5-99.8); MEAN PLATELET VOLUME 9.1 fL (8.7-11.7); PLATELET CLUMPS FLAG 0 (0-99); PLATELET COUNT 239 10^3/uL (150-400); RED CELL DISTRIBUTION WIDTH 15.8 % (11.5-15.2)
[2017-07-25] MEDS: ACETAMINOPHEN 325 MG TAB PO PRN (05:56)
[2017-07-25 06:58] LABS: ANION GAP 4 mEq/L (8-16); CALCIUM 8.7 mg/dL (8.5-10.4); CARBON DIOXIDE 26 mEq/l (22-31); CHLORIDE 104 mEq/L (97-110); CREATININE 0.7 mg/dL (0.6-1.0); GLOMERULAR FILTRATION RATE > 60; GLUCOSE 90 mg/dL (70-100); MAGNESIUM 1.8 mg/dL (1.6-2.3); POTASSIUM 3.6 mEq/L (3.5-5.2); SODIUM 134 mEq/L (134-144)
[2017-07-25] MEDS ORDERED: MAGNESIUM SULF 1 GM/DEXTROSE 100 ML IV ONE (07:18)
[2017-07-25] MEDS: ONDANSETRON 4 MG/2 ML VIAL IVP PRN (07:41)
[2017-07-25] MEDS: SUCRALFATE 1 GM TAB PO SCH ×2 (07:47→11:46)
[2017-07-25] MEDS: THIAMINE HCL 100 MG TAB PO SCH (07:47)
[2017-07-25] MEDS: PANTOPRAZOLE SODIUM 40 MG in NS 100 ML IV SCH (07:48)
[2017-07-25] MEDS: FLUoxetine 20 MG CAP PO SCH (07:48)
[2017-07-25] MEDS ORDERED: LISINOPRIL 10 MG TAB PO SCH (11:30)
[2017-07-25 15:02] VITALS: BP 161/99; PULSE 83; RESP 96; TEMP 98.4; O2SAT 18
--- NOTE | 2017-07-25 15:38 | PDDCSUM ---
Discharge Summary Discharge Summary: Dates of service 07/20-07/25/17 consultations: GI Procedures performed: EGD, esophagram, chest CTA Hospital course by problem: # pneumonia, suspect aspiration - improved on 5 day course of ctx/azithromycin # tachycardia - resolved # emesis, persistent - resolved, s/p EGD without clear etiology for n/v # hypoK - better with repletion # etOH abuse - no more withdrawal - cont CIWA # nasal fracture - outpatient ENT # recent PE - xarelto, lifelong AC dc home f/u with PCP and to get referral to ENT per PCP > 35 min spent in dc of patient, more than half in coordination of care
--- NOTE | 2017-07-25 16:36 | ASMTCMCOM ---
CM Note CM Note Notes: 07/25/2017 Case Management Note Met w/pt and MAGALY Lai. Pt tearful at news of discharge. Reports fear of starting to drink again. Provided information to access [facility] outpatient behavioral health clinic. Offered to find AA meeting for pt to attend [facility]. Pt declined. offered information to access [facility] [place] [facility]. Pt declined. Encouraged pt to use [employer] insurance to find benefits to support efforts to remain sober. Pt declined all supports. When asked directly "Are you having suicidal thoughts right now" Pt denied suicidal thoughts now or in recent past. Pt plans to drive self home. Pt agreed for Case Management to contact Arturo, boyfriend of 5 years. Left VM informing Arturo of d/c. Date Signed: 07/25/2017 04:36 PM Electronically Signed By:Kiana Schuster RN
[2017-07-25] MEDS ORDERED: PANTOPRAZOLE SODIUM 40 MG TAB PO SCH (21:00)
== END 2017-07-25 17:15 | disposition home or self-care (01) | DRG 178 ==
LOC: INTOOBSV 13:43 → F2W 15:40 → OBSVTOIN 07-21 13:07
PROVIDERS: ADMIT Internal Medicine; ATTEND Internal Medicine
PROC: 0DB98ZX Excision of Duodenum, Via Natural or Artificial Opening Endoscopic, Diagnostic (ICD-10-PCS; principal; 2017-07-24 17:00)
DX: J69.0 Pneumonitis due to inhalation of food and vomit (principal); F10.230 Alcohol dependence with withdrawal, uncomplicated; E87.1 Hypo-osmolality and hyponatremia; E87.6 Hypokalemia; S02.2XXA Fracture of nasal bones, initial encounter for closed fracture; Z79.01 Long term (current) use of anticoagulants; Z86.711 Personal history of pulmonary embolism; Z86.718 Personal history of other venous thrombosis and embolism
CPT/HCPCS: 92611-GN; 96365; G0378; J0456; J0696; J2405; J2704; J3411; J3475; Q9967

== ENCOUNTER 2017-08-10 11:53 | Emergency (ER) | payer OTHER ==
--- NOTE | 2017-08-10 12:38 | CPEKG ---
Heart Rate: 75 RR Interval: 800 P-R Interval: 168 QRSD Interval: 78 QT Interval: 424 QTC Interval: 474 P [place]: 46 QRS [place]: -20 T Wave [place]: 3 EKG Severity - OTHERWISE NORMAL ECG - EKG Impression: SINUS RHYTHM EKG Impression: BORDERLINE LEFT AXIS DEVIATION Electronically Signed By: Aysha Lim 12-Aug-2017 17:42:09
--- NOTE | 2017-08-10 12:38 | EDPHY ---
HPI/HX/ROS/PE/MDM Narrative: CHIEF COMPLAINT: Bilateral arm pain HPI: The patient is a 56 y/o female with a history of DVTs and PEs complaining of severe bilateral shoulder pain for the last few days. She was admitted here at the end of May for chest pain and diagnosed with bilateral PEs. She was discharged on Xarelto with the recommendation to continue it indefinitely, but she stopped taking it 9 days ago due to bruising. A few days ago she develop pain in both upper arms. This pain has slowly migrated up towards her shoulder and is now primarily along the top of her shoulder and "feels like I'm in a vice." She complains of associated pain medial to each shoulder blade that feels like she is being "stabbed and hanging from a meat hook." Her pain became unbearable while at work today and is aggravated by deep inspiration. She took Advil for pain just prior to arrival here. She denies chest pain, dyspnea, fever , or other complains. Her symptoms do not feel similar to her prior PEs, though she is concerned she has blood clots. REVIEW OF SYSTEMS: Aside from elements discussed in the HPI, a comprehensive 10-point review of systems was reviewed and is negative. PMH: PE - stopped Xarelto 9 days ago, DVT x2 one status post vein stripping SOCIAL HISTORY: Triathlete. Nonsmoker. Drinks alcohol. 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 PCP: [facility] Prior medical records reviewed including admission 06/15/17 for bilateral PEs. PHYSICAL EXAM: General:Patient is alert, anxious, in no acute distress. ENT:Eyes are normal to inspection. ENT inspection normal. Neck: Normal inspection. Full range of motion. Respiratory:No respiratory distress. Breath sounds normal bilaterally. Cardiovascular: Regular rate and rhythm. Strong peripheral pulses. Normal cap refill. Abdomen:The abdomen is nontender to palpation. There are no peritoneal signs. Back: Normal to inspection. No tenderness to palpation. Skin: Normal color. No rash. Warm and dry. Extremities: Normal appearance. Full range of motion. Neuro: Oriented x3. Normal motor function. Normal sensory function. ED Course: This is a 56 y/o female with a history of DVTs and recent PEs who presents with a few-day history of worsening bilateral shoulder pain that became severe today. She also has pain between her shoulder blades. She chose to stop her Xarelto 9 days ago and is now concerned she has blood clots in both arms. Plan for IV, labs, EKG, chest x-ray, and bilateral arm ultrasounds. The 12 lead EKG was interpreted by myself. Sinus rhythm rate 74. See hard copy and/or "tracemaster" electronic copy for interpretation. Ultrasounds are negative for DVT bilaterally. Chest x-ray is negative. D-dimer and troponin are negative. Reassessed patient and discussed findings. Though her d-dimer is negative, it does not completely exclude the possibility of a PE. I offered a chest CTA to evaluate for this, but she declined. She tells me not only did she stop taking her Xarelto, but she threw it all out as well. I have written a new script for Xarelto and advised her that the prior recommendation is to take it indefinitely. Standard musculoskeletal pain care instructions given. She understands she should follow up with her PCP for continued symptoms. MDM: This patient presents with bilateral atypical shoulder pain in the setting of recently discontinuing her anticoagulants. Her history and physical are complicated by an extremely nervous and somewhat pressured affect. US are normal. Patient declines further testing. The etiology of her symptoms is unclear. - Data Points Imaging Results: Imaging Impressions Extremity Venous Study 08/10/17 12:17 Impression: No evidence of intraluminal thrombus venous system right and left upper extremity. Findings discussed with Russel Tafoya MD at 13:34 hour, 08/10/2017. Imaging: Discussed imaging studies w/ scallop raker Radiologist, I viewed and interpreted images myself Laboratory Results: Laboratory Results 08/10/17 12:28 08/10/17 12:28 08/10/17 08/10/17 08/10/17 12:28 12:28 12:28 WBC 7.38 10^3/uL 10^3/uL (3.80-9.50) RBC 3.89 10^6/uL L 10^6/uL (4.18-5.33) Hgb 12.3 g/dL L g/dL (12.6-16.3) Hct 35.2 % L % (38.0-47.0) MCV 90.5 fL fL (81.5-99.8) MCH 31.6 pg pg (27.9-34.1) MCHC 34.9 g/dL g/dL (32.4-36.7) RDW 15.1 % % (11.5-15.2) Plt Count 486 10^3/uL H 10^3/uL (150-400) MPV 9.1 fL fL (8.7-11.7) Neut % (Auto) 51.0 % % (39.3-74.2) Lymph % (Auto) 35.1 % % (15.0-45.0) [place] % (Auto) 7.0 % % (4.5-13.0) Eos % (Auto) 5.1 % % (0.6-7.6) Baso % (Auto) 1.4 % % (0.3-1.7) Nucleat RBC Rel Count 0.0 % % (0.0-0.2) Absolute Neuts (auto) 3.76 10^3/uL 10^3/uL (1.70-6.50) Absolute Lymphs (auto) 2.59 10^3/uL 10^3/uL (1.00-3.00) Absolute Monos (auto) 0.52 10^3/uL 10^3/uL (0.30-0.80) Absolute Eos (auto) 0.38 10^3/uL 10^3/uL (0.03-0.40) Absolute Basos (auto) 0.10 10^3/uL 10^3/uL (0.02-0.10) Absolute Nucleated RBC 0.00 10^3/uL 10^3/uL (0-0.01) Immature Gran % 0.4 % % (0.0-1.1) Immature Gran # 0.03 10^3/uL 10^3/uL (0.00-0.10) D-Dimer 0.41 ug/mLFEU ug/mLFEU (0.00-0.50) Sodium 132 mEq/L L mEq/L (134-144) Potassium 3.7 mEq/L mEq/L (3.5-5.2) Chloride 98 mEq/L mEq/L (97-110) Carbon Dioxide 22 mEq/l mEq/l (22-31) Anion Gap 12 mEq/L mEq/L (8-16) BUN 15 mg/dL mg/dL (7-23) Creatinine 0.9 mg/dL mg/dL (0.6-1.0) Estimated GFR > 60 Glucose 93 mg/dL mg/dL (70-100) Calcium 9.5 mg/dL mg/dL (8.5-10.4) Troponin I < 0.012 ng/mL ng/mL (0.000-0.034) General Time Seen by Provider: 08/10/17 12:17 Initial Vital Signs: Initial Vital Signs Temperature (C) 36.7 C 08/10/17 12:04 Heart Rate 86 08/10/17 12:04 Respiratory Rate 16 08/10/17 12:04 Blood Pressure 172/110 H 08/10/17 12:04 O2 Sat (%) 99 08/10/17 12:04 O2 Delivery Mode Room Air Allergies/Adverse Reactions: No Allergies [NKA] Allergy (Unknown, Verified 07/20/17 09:10) Unknown Home Medications: Medication Instructions Recorded Cholecalciferol Vit D3 [Vitamin D3 1,000 units PO DAILY 06/15/17 (*)] FLUoxetine HCL [Fluoxetine HCl] 40 mg PO DAILY 06/15/17 LORazepam [Ativan (*)] 1 mg PO DAILY PRN 06/15/17 Multivitamins [Multivitamin (*)] 1 tab PO DAILY 06/15/17 Vitamin B Complex [B Complex] 1 tab PO DAILY 06/15/17 QUEtiapine FUMARATE [Seroquel 25 25 mg PO DAILY PRN 07/20/17 mg (*)] Rivaroxaban [Xarelto 10mg (*)] 20 mg PO DAILY 07/20/17 Pantoprazole Sodium [Protonix 40mg 40 mg PO BID #60 tab 07/25/17 (*)] Rivaroxaban [Xarelto 15mg (*)] 20 mg PO DAILY #20 tab 08/10/17 Departure - Departure Disposition: Home, Routine, Self-Care Clinical Impression: Bilateral shoulder pain Condition: Good Instructions: Rivaroxaban (By mouth), Shoulder Pain (ED) Additional Instructions: 1. Take Xarelto daily as prescribed for clot prevention. The specialist that saw you during your admission for PE recommended indefinite use of this medication due to your recurrent clots. 2. Your blood pressure here was elevated. Follow up with your primary care provider early next week for reevaluation. 3. You can try applying ice or heat to sore areas to treat pain. 4. Use Tylenol as directed on the packaging as needed for pain. 5. Return to the ED for chest pain, shortness of breath, or other worsening of condition. Referrals: Aggie Lowry MD [Primary Care Provider] - As per Instructions Prescriptions: Rivaroxaban [Xarelto 15mg (*)] 20 mg PO DAILY #20 tab Report Scribed for: Russel Tafoya Report Scribed by: Alesia Blake Date of Report: 08/10/17 Time of Report: 12:33 Physician Review and Approval Statement: Portions of this note were transcribed by an ED scribe. I personally performed the history, physical exam, and medical decision making; and confirm the accuracy of the information in the transcribed note.
[2017-08-10 12:48] LABS: % IMMATURE GRANULYOCYTES 0.4 % (0.0-1.1); ABSOLUTE IMMATURE GRANULOCYTES 0.03 10^3/uL (0.00-0.10); ADD DIFF? NO; ADD MORPH? NO; ADD SCAN? NO; ATYPICAL LYMPHOCYTE FLAG 10 (0-99); FRAGMENT RBC FLAG 0 (0-99); HEMATOCRIT 35.2 % (38.0-47.0); HEMOGLOBIN 12.3 g/dL (12.6-16.3); LEFT SHIFT FLG 0 (0-99); LIPEMIA HEMOLYSIS FLAG 90 (0-99); MEAN CELL HEMOGLOBIN 31.6 pg (27.9-34.1); MEAN CELL HEMOGLOBIN CONCENTR. 34.9 g/dL (32.4-36.7); MEAN CELL VOLUME 90.5 fL (81.5-99.8); MEAN PLATELET VOLUME 9.1 fL (8.7-11.7); PLATELET CLUMPS FLAG 0 (0-99); PLATELET COUNT 486 10^3/uL (150-400); RED BLOOD CELL COUNT 3.89 10^6/uL (4.18-5.33); RED CELL DISTRIBUTION WIDTH 15.1 % (11.5-15.2)
[2017-08-10 13:20] LABS: ANION GAP 12 mEq/L (8-16); CALCIUM 9.5 mg/dL (8.5-10.4); CARBON DIOXIDE 22 mEq/l (22-31); CHLORIDE 98 mEq/L (97-110); CREATININE 0.9 mg/dL (0.6-1.0); GLOMERULAR FILTRATION RATE > 60; GLUCOSE 93 mg/dL (70-100); POTASSIUM 3.7 mEq/L (3.5-5.2); SODIUM 132 mEq/L (134-144)
[2017-08-10 13:31] LABS: TROPONIN I < 0.012 ng/mL (0.000-0.034)
[2017-08-10 13:56] VITALS: BP 181/111; PULSE 78; RESP 18; TEMP 98.6; O2SAT 97
== END 2017-08-10 14:26 | disposition home or self-care (01) ==
DX: M25.512 Pain in left shoulder (principal); M25.511 Pain in right shoulder

== ENCOUNTER 2017-08-21 09:40 | Emergency (ER) | payer OTHER ==
[2017-08-21] MEDS ORDERED: LORazepam 2 MG/ML INJ IVP ONE ×2 (09:44→09:51)
[2017-08-21 09:46] VITALS: TEMP 97.9
[2017-08-21 10:04] VITALS: RESP 16
[2017-08-21 10:04] LABS: PLATELET COUNT 321 10^3/uL (150-400)
--- NOTE | 2017-08-21 10:25 | CPEKG ---
Heart Rate: 91 RR Interval: 659 P-R Interval: 164 QRSD Interval: 80 QT Interval: 396 QTC Interval: 488 P [place]: 43 QRS [place]: -25 T Wave [place]: 55 EKG Severity - BORDERLINE ECG - EKG Impression: SINUS RHYTHM EKG Impression: BORDERLINE LEFT AXIS DEVIATION EKG Impression: BORDERLINE PROLONGED QT INTERVAL Electronically Signed By: Aysha Lim 21-Aug-2017 14:52:15
[2017-08-21] MEDS ORDERED: IOPAMIDOL (ISOVUE 370) 100 ML BTL IV ONE (10:38)
[2017-08-21 10:51] LABS: INR 1.27 (0.83-1.16); PROTIME(PATIENT) 15.9 SEC (12.0-15.0)
--- NOTE | 2017-08-21 11:48 | EDPHY ---
H & P Stated Complaint: ETOH HPI/ROS: Chief complaint: Alcohol intoxication History of present illness: This is a 56-year-old female brought to the emergency department by EMS for potential alcohol intoxication. Patient apparently walked into the police thing office of her apartment complex stating she was feeling unwell. She was extremely anxious and brought here. On my evaluation there is no odor of alcohol on breath. She is extremely anxious and crying. She states she hurts all over including her head as well as chest pain and shortness of breath. 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 She is post be on lifelong Xarelto but is not taking it regularly. She has not been on it for at least a week. She states her chest pain or shortness of breath feels similar to previous PEs. Review of systems: A 10 point review of systems was obtained and other than described above was negative - Personal History Current Tetanus Diphtheria and Acellular Pertussis (TDAP): Yes - Medical/Surgical History Hx Asthma: No Hx Chronic Respiratory Disease: No Hx Diabetes: No Hx Cardiac Disease: No Hx Renal Disease: No Hx Cirrhosis: No Hx Alcoholism: Yes Hx HIV/AIDS: No Hx Splenectomy or Spleen Trauma: No Other PMH: 3 x Blood clots since May 2017. - Social History Smoking Status: Never smoked - Physical Exam Exam: General Appearance: Alert, extremely anxious. Eyes: Pupils equal and round no pallor or injection. ENT, Mouth: Mucous membranes moist. Respiratory: There are no retractions, lungs are clear to auscultation. Cardiovascular: Regular rate and rhythm. Gastrointestinal: Abdomen is soft and non tender, no masses, bowel sounds normal. Neurological: Alert. Strength and sensation intact and symmetrical. Skin: Warm and dry, no rashes. Musculoskeletal: Neck is supple non tender. Extremities are symmetrical, full range of motion. Psychiatric: Patient is extremely upset. Constitutional: Initial Vital Signs Temperature (C) 36.6 C 08/21/17 09:41 Heart Rate 99 08/21/17 09:41 Respiratory Rate 18 08/21/17 09:41 Blood Pressure 158/95 H 08/21/17 09:41 O2 Delivery Mode Room Air O2 (L/minute) 2 Allergies/Adverse Reactions: No Allergies [NKA] Allergy (Unknown, Verified 07/20/17 09:10) Unknown Home Medications: Medication Instructions Recorded Cholecalciferol Vit D3 [Vitamin D3 1,000 units PO DAILY 06/15/17 (*)] FLUoxetine HCL [Fluoxetine HCl] 40 mg PO DAILY 06/15/17 LORazepam [Ativan (*)] 1 mg PO DAILY PRN 06/15/17 Multivitamins [Multivitamin (*)] 1 tab PO DAILY 06/15/17 Vitamin B Complex [B Complex] 1 tab PO DAILY 06/15/17 QUEtiapine FUMARATE [Seroquel 25 25 mg PO DAILY PRN 07/20/17 mg (*)] Rivaroxaban [Xarelto 10mg (*)] 20 mg PO DAILY 07/20/17 Pantoprazole Sodium [Protonix 40mg 40 mg PO BID #60 tab 07/25/17 (*)] Rivaroxaban [Xarelto 15mg (*)] 20 mg PO DAILY #20 tab 08/10/17 Medical Decision Making - Diagnostics Imaging Results: Imaging Impressions Chest/Thorax CTA 08/21/17 10:26 Impression: 1. No visible pulmonary embolus. 2. Mild basilar atelectasis. 3. Moderate hiatal hernia. 4. Additional findings as above. Findings discussed with Oli An PA-C on August 21, [address] 08/21/17 10:26 Impression: 1. No acute intracranial findings. 2. Diffuse cerebral atrophy with periventricular and subcortical low attenuation consistent with chronic microvascular ischemic gliosis. 3. Additional findings as above. Findings discussed with JOHN Terry 08/21/2017 at 11:38. Imaging: Discussed imaging studies w/ faculty i on call medical assistant Radiologist ED Course/Re-evaluation: Patient is discussed with my primary supervising physician Dr. Aysha Lim. She presents to the emergency department intoxicated, extremely agitated complaining of headache, chest pain and shortness of breath. She is given Ativan with improvement in her agitation and IV hydrated. Blood studies are unremarkable. Given potential use of blood thinning medications and intoxication and a headache a CT scan is pursued to ensure no bleeding and is negative, given history of PEs and chest pain and shortness of breath and questionable use of blood thinners a CTA of the chest is obtained and negative. Ultimately she appears to be intoxicated. Her spouse has come and picked her up. We have discussed the importance of staying on her Xarelto long-term. She is to follow up with her primary care doctor for recheck. Return precautions are given. Differential Diagnosis: Included but not limited to alcohol intoxication, alcohol withdrawal, anxiety, pulmonary embolism, cardiac dysrhythmia, ACS, intracranial bleed - Data Points Laboratory Results: Laboratory Results 08/21/17 09:55 08/21/17 09:55 08/21/17 08/21/17 08/21/17 09:55 09:55 09:55 WBC RBC Hgb Hct MCV MCH MCHC RDW Plt Count MPV Neut % (Auto) Lymph % (Auto) [place] % (Auto) Eos % (Auto) Baso % (Auto) Nucleat RBC Rel Count Absolute Neuts (auto) Absolute Lymphs (auto) Absolute Monos (auto) Absolute Eos (auto) Absolute Basos (auto) Absolute Nucleated RBC Immature Gran % Immature Gran # PT 15.9 SEC H SEC (12.0-15.0) INR 1.27 H (0.83-1.16) APTT 27.3 SEC SEC (23.0-38.0) Sodium 141 mEq/L mEq/L (134-144) Potassium 3.9 mEq/L mEq/L (3.5-5.2) Chloride 104 mEq/L mEq/L (97-110) Carbon Dioxide 22 mEq/l mEq/l (22-31) Anion Gap 15 mEq/L mEq/L (8-16) BUN 10 mg/dL mg/dL (7-23) Creatinine 0.9 mg/dL mg/dL (0.6-1.0) Estimated GFR > 60 Glucose 97 mg/dL mg/dL (70-100) Calcium 8.6 mg/dL mg/dL (8.5-10.4) Troponin I < 0.012 ng/mL ng/mL (0.000-0.034) Beta HCG, Qual NEGATIVE Ethyl Alcohol 299 mg/dL H mg/dL (0-10) 08/21/17 09:55 WBC 9.33 10^3/uL 10^3/uL (3.80-9.50) RBC 4.14 10^6/uL L 10^6/uL (4.18-5.33) Hgb 13.0 g/dL g/dL (12.6-16.3) Hct 36.6 % L % (38.0-47.0) MCV 88.4 fL fL (81.5-99.8) MCH 31.4 pg pg (27.9-34.1) MCHC 35.5 g/dL g/dL (32.4-36.7) RDW 15.9 % H % (11.5-15.2) Plt Count 321 10^3/uL 10^3/uL (150-400) MPV 8.5 fL L fL (8.7-11.7) Neut % (Auto) 50.4 % % (39.3-74.2) Lymph % (Auto) 42.2 % % (15.0-45.0) [place] % (Auto) 5.3 % % (4.5-13.0) Eos % (Auto) 0.3 % L % (0.6-7.6) Baso % (Auto) 1.6 % % (0.3-1.7) Nucleat RBC Rel Count 0.0 % % (0.0-0.2) Absolute Neuts (auto) 4.70 10^3/uL 10^3/uL (1.70-6.50) Absolute Lymphs (auto) 3.94 10^3/uL H 10^3/uL (1.00-3.00) Absolute Monos (auto) 0.49 10^3/uL 10^3/uL (0.30-0.80) Absolute Eos (auto) 0.03 10^3/uL 10^3/uL (0.03-0.40) Absolute Basos (auto) 0.15 10^3/uL H 10^3/uL (0.02-0.10) Absolute Nucleated RBC 0.00 10^3/uL 10^3/uL (0-0.01) Immature Gran % 0.2 % % (0.0-1.1) Immature Gran # 0.02 10^3/uL 10^3/uL (0.00-0.10) PT INR APTT Sodium Potassium Chloride Carbon Dioxide Anion Gap BUN Creatinine Estimated GFR Glucose Calcium Troponin I Beta HCG, Qual Ethyl Alcohol Medications Given: Discontinued Medications Lorazepam (Ativan Injection) 1 mg IVP EDNOW ONE Stop: 08/21/17 09:45 Last Admin: 08/21/17 10:04 Dose: Not Given Lorazepam (Ativan Injection) 2 mg IVP EDNOW ONE Stop: 08/21/17 09:52 Last Admin: 08/21/17 10:01 Dose: 2 mg Departure - Departure Disposition: Home, Routine, Self-Care Clinical Impression: Alcoholic intoxication Qualifiers: Complication of substance-induced condition: uncomplicated Qualified Code(s): F10.920 - Alcohol use, unspecified with intoxication, uncomplicated Condition: Good Instructions: Alcohol Intoxication (ED) Additional Instructions: We strongly recommend you take your Xarelto on a regular basis as prescribed Follow-up with your primary care doctor this week for recheck If symptoms worsen or new symptoms develop return to the emergency room for recheck Referrals: Aggie Lowry MD [Primary Care Provider] - As per Instructions
[2017-08-21 11:52] VITALS: BP 162/106; PULSE 94; O2SAT 96
== END 2017-08-21 12:01 | disposition home or self-care (01) ==
LOC: EDUNIT#
DX: F10.920 Alcohol use, unspecified with intoxication, uncomplicated (principal)
CPT/HCPCS: 96374; G0480; J2060; Q9967

== ENCOUNTER 2017-08-22 13:18 | Emergency (ER) | payer OTHER ==
--- NOTE | 2017-08-22 13:34 | CPEKG ---
Heart Rate: 114 RR Interval: 526 P-R Interval: 172 QRSD Interval: 72 QT Interval: 328 QTC Interval: 452 P [place]: 60 QRS [place]: -23 T Wave [place]: 69 EKG Severity - OTHERWISE NORMAL ECG - EKG Impression: SINUS TACHYCARDIA EKG Impression: BORDERLINE LEFT AXIS DEVIATION Electronically Signed By: Nicholas Schultz 22-Aug-2017 13:43:45
[2017-08-22 14:01] LABS: PLATELET COUNT 350 10^3/uL (150-400)
--- NOTE | 2017-08-22 14:34 | EDPHY ---
H & P Smoking Status: Former smoker Time Seen by Provider: 08/22/17 13:23 HPI/ROS: CHIEF COMPLAINT: Chest pain, alcohol intoxication HISTORY OF PRESENT ILLNESS: 56-year-old female presents to the emergency department by ambulance complaining of pain in her chest. She is acutely intoxicated with alcohol. Patient denies any other substance abuse. She states "I just want to ". Patient denies homicidal ideation. Denies any other recreational drugs. She denies feeling short of breath. She has a history of previous pulmonary embolism. No abdominal pain or vomiting. No diarrhea. No reported trauma. No headache. Patient states "I drink a lot when IM PMSing ". REVIEW OF SYSTEMS: Constitutional: No fever, no chills. Eyes: No double or blurry vision. ENT: No sore throat. Respiratory: No cough, no shortness of breath. Cardiac: chest pain. Gastrointestinal: No abdominal pain, vomiting or diarrhea. Genitourinary: No dysuria. Musculoskeletal: No neck or back pain. Skin: No rashes. Neurological: No headache. (Nicole Ortez) Past Medical/Surgical History: DVTs, PE, alcoholism (Nicole Ortez) Social History: Single (Nicole Ortez) Physical Exam: General Appearance: Alert, no distress. Tearful. Smells of alcohol. No physical signs of trauma to her head. Eyes: Pupils equal and round. Extraocular motions are all intact. ENT: Mouth: Mucous membranes moist. Respiratory: No wheezing, rhonchi, or rales, lungs are clear to auscultation. Cardiovascular: Regular rate and rhythm. Gastrointestinal: Abdomen is soft and nontender, no masses, no rebound or guarding, bowel sounds normal. Neurological: Alert and oriented x 3, cranial nerves II through XII grossly intact Skin: Warm and dry, no rashes. Musculoskeletal: Nontender to palpate along the cervical, thoracic or lumbar spine. Neck is supple. Extremities: Full range of motion and no peripheral edema. Psychiatric: Mildly agitated. (Nicole Ortez) Constitutional: Initial Vital Signs Temperature (C) 36.6 C 08/22/17 13:45 Heart Rate 120 H 08/22/17 13:45 Respiratory Rate 16 08/22/17 13:45 Blood Pressure 148/103 H 08/22/17 13:45 O2 Sat (%) 97 08/22/17 13:45 O2 Delivery Mode Room Air Allergies/Adverse Reactions: No Allergies [NKA] Allergy (Unknown, Verified 08/22/17 14:11) Unknown Home Medications: Medication Instructions Recorded Cholecalciferol Vit D3 [Vitamin D3 1,000 units PO DAILY 06/15/17 (*)] FLUoxetine HCL [Fluoxetine HCl] 40 mg PO DAILY 06/15/17 LORazepam [Ativan (*)] 1 mg PO DAILY PRN 06/15/17 Multivitamins [Multivitamin (*)] 1 tab PO DAILY 06/15/17 Vitamin B Complex [B Complex] 1 tab PO DAILY 06/15/17 QUEtiapine FUMARATE [Seroquel 25 25 mg PO DAILY PRN 07/20/17 mg (*)] Rivaroxaban [Xarelto 10mg (*)] 20 mg PO DAILY 07/20/17 Pantoprazole Sodium [Protonix 40mg 40 mg PO BID #60 tab 07/25/17 (*)] Rivaroxaban [Xarelto 15mg (*)] 20 mg PO DAILY #20 tab 08/10/17 Medical Decision Making - Diagnostics EKG Interpretation: 12-lead EKG interpreted by me; official reading is in trace master. My interpretation is sinus tachycardia rate 114, no ischemic changes. (Nicholas Schultz) ED Course/Re-evaluation: 56-year-old female presents to the emergency department complaining of pain in her chest. She does have reproducible pain with palpation to the anterior aspect of her chest. No palpable crepitus or other bony abnormality. Patient was seen in the emergency department yesterday with acute alcohol intoxication and anxiety. She had a negative CT pulmonary angiogram yesterday. I do not think there is an indication to repeat this study. I do not think this patient has a pulmonary embolism. Troponin is negative. EKG is unremarkable. Again the patient has reproducible pain with palpation to the anterior aspect of her chest. ETOH is 378. She will be evaluated by mental health when she is sober. 3:35 p.m.: I spoke with patient's boyfriend, Nadege, at [phone]. He states that the patient has had multiple suicide attempts in the past including overdose on medication. He was feels very strongly that the patient should be evaluated by mental health. He does not feel comfortable taking her home. Repeat ETOH breath was 0.199. The patient is becoming increasingly anxious, hyperventilating. She will be given 1 mg Ativan p.o. per her request. (Nicole Ortez) 0502: Patient appears to be going to alcohol withdrawal. CIWA score currently 9. I have ordered another 25 mg of Librium. As well as additional 1 mg IV Ativan. 1 L of saline. He did closely watch her for further alcohol withdrawal. She has not had a mental health evaluation yet. 0630AM: Patient signed over to Dr. Pearce at 7:00 a.m. shift change. Patient pending mental health evaluation. (Andre Agustin) I took over care of this patient at 5:00 p.m.. The patient is here for situational depression, suicidal thoughts and alcohol intoxication. She is to be evaluated by Behavioral Health when appropriately sober. 5:25 p.m., patient evaluated by myself. She is anxious and alert. Responding to questions appropriately. She is asking for medication for her anxiety. She was given a mg of oral Ativan. She is awaiting behavioral health evaluation. 11:00 p.m., patient is still waiting for behavioral health evaluation. Care turned over to Dr. Andre Agustin at this time. (Amy Tenorio) Differential Diagnosis: Depression including functional and major depression, situational depression, medication side effect, drugs and alcohol abuse. (Nicole Ortez) Other Provider: 9:30 a.m. the patient continues to have mild withdrawal symptoms. Will treat her with Librium and Reglan. She also has a mild headache. She is not compliant with her Xarelto which she is prescribed for history of PEs. This may not be a safe medication for her considering her alcoholism any ways. Will not restarted at this point. She does not have any chest pain, shortness of breath is cetera currently. 11:30 a.m. the patient is sober. She is not tremulous. She denies suicidality. She does not wish to be evaluated by Mental Health. She denies depression symptoms. She is answering all questions appropriately. She would like to be discharged. I will give her an extra dose of Librium right now as well as a take-home pack. I recommended that she go to the [facility] recovery [facility] but she refuses. She has been there before. She does wish to stop drinking and states that she does not have any alcohol at home. 12:00 p.m. the patient was evaluated by Mental Health and they agree with above. They will speak to the partner and refer him to [facility]. 12:30 p.m. the hospital's out of [facility] will give a take-home pack of Ativan. ( Smith Pearce) - Data Points Laboratory Results: Laboratory Results 08/22/17 13:40 08/22/17 13:40 Medications Given: Discontinued Medications Acetaminophen (Tylenol) 650 mg PO EDNOW ONE Stop: 08/22/17 18:27 Last Admin: 08/22/17 18:35 Dose: 650 mg Hydrocodone Bitart/Acetaminophen ([place] 5/325) 1 tab PO EDNOW ONE Stop: 08/22/17 19:05 Last Admin: 08/22/17 19:09 Dose: 1 tab Hydrocodone Bitart/Acetaminophen ([place] 5/325) 1 tab PO EDNOW ONE Stop: 08/23/17 06:33 Last Admin: 08/23/17 06:37 Dose: 1 tab Chlordiazepoxide HCl (Librium) 25 mg PO EDNOW ONE Stop: 08/23/17 00:26 Last Admin: 08/23/17 00:31 Dose: 25 mg Chlordiazepoxide HCl (Librium) 25 mg PO EDNOW ONE Stop: 08/23/17 05:02 Last Admin: 08/23/17 05:05 Dose: 25 mg Chlordiazepoxide HCl (Librium) 25 mg PO EDNOW ONE Stop: 08/23/17 05:07 Last Admin: 08/23/17 05:07 Dose: Not Given Chlordiazepoxide HCl (Librium) 50 mg PO EDNOW ONE Stop: 08/23/17 09:37 Last Admin: 08/23/17 09:43 Dose: 50 mg Chlordiazepoxide HCl (Librium) 50 mg PO EDNOW ONE Stop: 08/23/17 11:31 Last Admin: 08/23/17 12:11 Dose: 50 mg Sodium Chloride (Ns) 1,000 mls @ 0 mls/hr IV ONCE ONE PRN Reason: Wide Open Stop: 08/23/17 05:03 Last Admin: 08/23/17 05:07 Dose: 1,000 mls Lorazepam (Ativan) 1 mg PO EDNOW ONE Stop: 08/22/17 16:05 Last Admin: 08/22/17 16:09 Dose: 1 mg Lorazepam (Ativan) 1 mg PO EDNOW ONE Stop: 08/22/17 17:24 Last Admin: 08/22/17 17:28 Dose: 1 mg Lorazepam (Ativan) 1 mg PO EDNOW ONE Stop: 08/22/17 20:43 Last Admin: 08/22/17 20:46 Dose: 1 mg Lorazepam (Ativan Injection) 1 mg IVP EDNOW ONE Stop: 08/23/17 00:26 Last Admin: 08/23/17 00:31 Dose: 1 mg Lorazepam (Ativan Injection) 1 mg IVP EDNOW ONE Stop: 08/23/17 01:27 Last Admin: 08/23/17 03:04 Dose: 1 mg Lorazepam (Ativan Injection) 1 mg IVP EDNOW ONE Stop: 08/23/17 05:02 Last Admin: 08/23/17 05:05 Dose: 1 mg Metoclopramide HCl (Reglan Injection) 10 mg IVP EDNOW ONE Stop: 08/23/17 09:37 Last Admin: 08/23/17 09:41 Dose: 10 mg Departure - Departure Disposition: Home, Routine, Self-Care Clinical Impression: Alcoholism, Situational depression Chest pain Qualifiers: Chest pain type: unspecified Qualified Code(s): R07.9 - Chest pain, unspecified Condition: Good Instructions: Alcohol Withdrawal (ED), Lorazepam (By mouth) Referrals: Aggie Lowry MD [Primary Care Provider] - As per Instructions
[2017-08-22] MEDS ORDERED: LORazepam 1 MG TAB PO ONE ×3 (16:04→20:42)
[2017-08-22] MEDS ORDERED: ACETAMINOPHEN 325 MG TAB PO ONE (18:26)
[2017-08-22] MEDS ORDERED: HYDROCODONE/APAP 5/325 TAB PO ONE (19:04)
[2017-08-23] MEDS ORDERED: LORazepam 2 MG/ML INJ IVP ONE ×3 (00:25→05:01)
[2017-08-23] MEDS ORDERED: chlordiazePOXIDE 25 MG CAP PO ONE ×5 (00:25→11:30)
[2017-08-23] MEDS ORDERED: NS 1,000 ML IV ONE (05:02)
[2017-08-23 06:18] VITALS: RESP 18
[2017-08-23] MEDS ORDERED: HYDROCODONE/APAP 5/325 TAB PO ONE (06:32)
[2017-08-23] MEDS ORDERED: METOCLOPRAMIDE 10 MG/2 ML VIAL IVP ONE (09:36)
[2017-08-23] MEDS ORDERED: CHLORDIAZEPOXIDE 25MG PREPK#6 BTL TAKEHOME ONE (11:32)
[2017-08-23] MEDS ORDERED: LORAZEPAM 1 MG PREPACK#4 BTL TAKEHOME ONE (12:33)
[2017-08-23 12:49] VITALS: BP 166/99; PULSE 98; TEMP 98.2; O2SAT 95
== END 2017-08-23 12:49 | disposition home or self-care (01) ==
LOC: EDUNIT#
DX: R07.9 Chest pain, unspecified (principal); F10.20 Alcohol dependence, uncomplicated; F43.21 Adjustment disorder with depressed mood; Z79.01 Long term (current) use of anticoagulants; Z87.891 Personal history of nicotine dependence
CPT/HCPCS: 80305; 96374; G0480; J2060; J2765

== ENCOUNTER 2017-08-24 09:42 | Emergency (ER) | payer OTHER ==
--- NOTE | 2017-08-24 09:47 | EDPHY ---
H & P Time Seen by Provider: 08/24/17 09:46 HPI/ROS: CHIEF COMPLAINT: "I'm drunk " HISTORY OF PRESENT ILLNESS: 56-year-old female self-described "alcoholic "arrives via ambulance after she was observed in the lobby of her apartment complex acting erratically and combative early, suspected alcohol intoxication. EMS placed restraints secondary to her combativeness. She was recently seen emergency department for psychiatric issues, please see prior reports. At this time she denies suicidal or homicidal ideations. She denies trauma or fall. REVIEW OF SYSTEMS: A ten point review of systems was performed and is negative with the exception of the items mentioned in the HPI PAST MEDICAL & SURGICAL HISTORY: self-described history of alcoholism SOCIAL HISTORY:admits to positive heavy alcohol use since last evening PHYSICAL EXAM (Prior to examination, patient consented to physical exam, hands were washed and my usual and customary physical exam procedures followed) 1) GENERAL: Well-developed, well-nourished, alert and oriented. She is calm and follows commands at this time. Answering questions appropriately. 2) HEAD: Normocephalic, atraumatic 3) HEENT: Pupils equal, round, reactive to light bilaterally. Sclera anicteric. No raccoon eyes. No Peralta sign. No rhinorrhea. No hemotympanum. No otorrhea. 4) NECK: Full range of motion, no meningeal signs. 5) LUNGS: Clear auscultation bilaterally, no wheezes, no rhonchi, no retractions. 6) HEART: Regular rate and rhythm, no murmur, no heave, no gallop. 7) ABDOMEN: No guarding, no rebound, no focal tenderness, negative McBurney's, negative Chavira's, negative Rovsing's, negative peritoneal sign, 8) MUSCULOSKELETAL: Moving all extremities, no focal areas of tenderness, no obvious trauma. No peripheral edema or discoloration. 9) BACK: No CVA tenderness, no midline vertebral tenderness, no fluctuance, no step-off, no obvious trauma, no visual or palpable abnormality. 10) SKIN: No rash, no petechiae. 11) Psychiatric: Patient is oriented X 3, there is no agitation. DIFFERENTIAL DIAGNOSIS: In no particular orderincluding but not limited to hypoglycemia, infectious process, electrolyte abnormality, head injury and intoxicants. - Medical/Surgical History Hx Asthma: No Hx Chronic Respiratory Disease: No Hx Diabetes: No Hx Cardiac Disease: No Hx Renal Disease: No Hx Cirrhosis: No Hx Alcoholism: Yes Hx HIV/AIDS: No Hx Splenectomy or Spleen Trauma: No Other PMH: 3 x Blood clots since May 2017. - Social History Smoking Status: Former smoker Constitutional: Initial Vital Signs Temperature (C) 37.0 C 08/24/17 10:03 Heart Rate 98 08/24/17 10:03 Respiratory Rate 18 08/24/17 10:03 Blood Pressure 158/76 H 08/24/17 10:03 O2 Sat (%) 98 08/24/17 10:03 O2 Delivery Mode Room Air Allergies/Adverse Reactions: No Allergies [NKA] Allergy (Unknown, Verified 08/22/17 14:11) Unknown Home Medications: Medication Instructions Recorded Cholecalciferol Vit D3 [Vitamin D3 1,000 units PO DAILY 06/15/17 (*)] FLUoxetine HCL [Fluoxetine HCl] 40 mg PO DAILY 06/15/17 LORazepam [Ativan (*)] 1 mg PO DAILY PRN 06/15/17 Multivitamins [Multivitamin (*)] 1 tab PO DAILY 06/15/17 Vitamin B Complex [B Complex] 1 tab PO DAILY 06/15/17 QUEtiapine FUMARATE [Seroquel 25 25 mg PO DAILY PRN 07/20/17 mg (*)] Rivaroxaban [Xarelto 10mg (*)] 20 mg PO DAILY 07/20/17 Pantoprazole Sodium [Protonix 40mg 40 mg PO BID #60 tab 07/25/17 (*)] Rivaroxaban [Xarelto 15mg (*)] 20 mg PO DAILY #20 tab 08/10/17 Medical Decision Making ED Course/Re-evaluation: 9:46 a.m.: Old medical records have been reviewed by myself. I also reviewed the patient's negative head CT scan obtained in the past few days. At this time , will hold on repeat imaging, will re-evaluate patient, will administer IV hydration, will allow her to sober for period of time. She denies suicidal or homicidal ideation at this time. Care of patient under supervision of secondary supervising physician Dr Pearce . 11:03 a.m.: Patient ambulatory, re-evaluated, denies suicidal or homicidal ideation offered to send her to the [facility], she does not want to go to [facility], will call friend to come pick her up. She is answering questions appropriately, awake alert oriented person place time events, stable steady gait, clear speech pattern. - Data Points Laboratory Results: 08/24/17 10:00 Ethyl Alcohol 250 mg/dL H mg/dL (0-10) Medications Given: Discontinued Medications Acetaminophen (Tylenol) 650 mg PO EDNOW ONE Stop: 08/24/17 12:50 Last Admin: 08/24/17 12:50 Dose: 650 mg Sodium Chloride (Ns) 1,000 mls @ 0 mls/hr IV ONCE ONE PRN Reason: Wide Open Stop: 08/24/17 09:49 Last Admin: 08/24/17 10:13 Dose: 1,000 mls Lorazepam (Ativan Injection) 1 mg IVP EDNOW ONE Stop: 08/24/17 09:49 Last Admin: 08/24/17 10:14 Dose: 1 mg Departure - Departure Disposition: Home, Routine, Self-Care Clinical Impression: Alcoholic intoxication Qualifiers: Complication of substance-induced condition: uncomplicated Qualified Code(s): F10.920 - Alcohol use, unspecified with intoxication, uncomplicated Condition: Good Instructions: Alcohol Intoxication (ED) Referrals: [facility] Detox 24 Hours [Outside] - 1-2 days without fail
[2017-08-24] MEDS ORDERED: LORazepam 2 MG/ML INJ IVP ONE (09:48)
[2017-08-24] MEDS ORDERED: NS 1,000 ML IV ONE (09:48)
[2017-08-24 10:32] LABS: ETHANOL SERUM 250 mg/dL (0-10)
[2017-08-24] MEDS ORDERED: ACETAMINOPHEN 325 MG TAB ONE (12:48)
[2017-08-24] MEDS ORDERED: ACETAMINOPHEN 325 MG TAB PO ONE (12:49)
[2017-08-24 13:14] VITALS: PULSE 90; O2SAT 93
[2017-08-24 13:15] VITALS: BP 127/71; RESP 16; TEMP 97.9
== END 2017-08-24 13:15 | disposition home or self-care (01) ==
LOC: EDUNIT#
DX: F10.920 Alcohol use, unspecified with intoxication, uncomplicated (principal); Z87.891 Personal history of nicotine dependence
CPT/HCPCS: 96374; G0480; J2060

== ENCOUNTER 2017-12-09 07:42 | Emergency (ER) | payer OTHER ==
[2017-12-09 07:47] VITALS: BP 157/117; PULSE 112; RESP 18; O2SAT 97
--- NOTE | 2017-12-09 07:52 | EDPHY ---
H & P Stated Complaint: Wants detox; last ETOH~ 1 hr ago Time Seen by Provider: 12/09/17 07:51 HPI/ROS: CHIEF COMPLAINT: Alcohol withdrawal HISTORY OF PRESENT ILLNESS: The patient presents to the ED requesting medications for alcohol withdrawal. She reports her last drink was approximately 8 hr ago. The patient reports she has a chronic daily drinker. She takes no regular medications. The patient denies any suicidal or homicidal ideation. The patient denies fever, cough or congestion. The patient denies any additional acute medical complaints. REVIEW OF SYSTEMS: A comprehensive 10 point review of systems is otherwise negative aside from elements mentioned in the history of present illness. Source: Patient Exam Limitations: No limitations - Personal History Current Tetanus Diphtheria and Acellular Pertussis (TDAP): Yes - Medical/Surgical History Hx Asthma: No Hx Chronic Respiratory Disease: No Hx Diabetes: No Hx Cardiac Disease: No Hx Renal Disease: No Hx Cirrhosis: No Hx Alcoholism: Yes Hx HIV/AIDS: No Hx Splenectomy or Spleen Trauma: No Other PMH: 3 x Blood clots since May 2017. - Social History Smoking Status: Former smoker - Physical Exam Exam: General Appearance: Alert, no acute distress, slightly tremulous Eyes: Pupils equal and round no pallor or injection ENT, Mouth: Mucous membranes moist Respiratory: There are no retractions, lungs are clear to auscultation Cardiovascular: Regular rate and rhythm Gastrointestinal: Abdomen is soft and nontender, no masses, bowel sounds normal Neurological: A&O, normal motor function, normal sensory exam, normal cranial nerves Skin: Warm and dry, no rashes Musculoskeletal: Neck is supple nontender Extremities: symmetrical, full range of motion Constitutional: Initial Vital Signs Heart Rate 112 H 12/09/17 07:44 Respiratory Rate 18 12/09/17 07:44 Blood Pressure 157/117 H 12/09/17 07:44 O2 Sat (%) 97 12/09/17 07:44 O2 Delivery Mode Room Air Allergies/Adverse Reactions: No Allergies [NKA] Allergy (Unknown, Verified 12/09/17 07:43) Unknown Home Medications: Medication Instructions Recorded NK [No Known Home Meds] 12/09/17 Medical Decision Making ED Course/Re-evaluation: The patient received oral Ativan in the emergency department for symptoms related to mild alcohol withdrawal. The patient has been given outpatient information on the local detox facility. The patient does not meet criteria for a mental health hold. The patient is otherwise asymptomatic without acute complaints. The patient will be discharged from the emergency department. Differential Diagnosis: Differential diagnosis considered includes alcohol intoxication, alcohol withdrawal syndrome, dehydration - Data Points Medications Given: Discontinued Medications Lorazepam (Ativan) 1 mg PO EDNOW ONE Stop: 12/09/17 08:02 Last Admin: 12/09/17 08:08 Dose: 1 mg Departure - Departure Disposition: Home, Routine, Self-Care Clinical Impression: Alcohol withdrawal Qualifiers: Complication of substance-induced condition: uncomplicated Qualified Code(s): F10.230 - Alcohol dependence with withdrawal, uncomplicated Condition: Good Instructions: Alcohol Withdrawal (ED) Additional Instructions: 1. Please follow up with the [facility] if you desire further assistance with your alcohol dependence. They do have outpatient programs available to treat alcohol withdrawal. Referrals: Aggie Lowry MD [Primary Care Provider] - As per Instructions [facility] 24 Hours [Outside] - As per Instructions
[2017-12-09] MEDS ORDERED: LORazepam 1 MG TAB PO ONE (08:01)
== END 2017-12-09 08:24 | disposition home or self-care (01) ==
DX: F10.230 Alcohol dependence with withdrawal, uncomplicated (principal); Z87.891 Personal history of nicotine dependence

== ENCOUNTER 2017-12-28 17:43 | Emergency (ER) | payer OTHER ==
[2017-12-28 18:22] VITALS: BP 160/98; PULSE 104; RESP 18; TEMP 97.9; O2SAT 96
--- NOTE | 2017-12-28 18:28 | EDPHY ---
General Time Seen by Provider: 12/28/17 17:59 Narrative: CHIEF COMPLAINT: Wanting detox HISTORY OF PRESENT ILLNESS: Patient presents with complaints of wanting to detox from alcohol. She reports drinking about the ankle with daily for many years. Her last intake was a half a cup or 1 cup a half this morning 8:00 a.m.. She says she is starting to withdrawal, but she cannot provide any details. She does deny any seizure, chest pain or vomiting. She says that she does not want to go to the [facility] but is asking for Ativan both here and for home use. She does not have any modifying factors. She has no other associated complaints or modifying factors of any kind. REVIEW OF SYSTEMS: Ten systems reviewed and are negative unless otherwise noted in the HPI PCP: Dr. Rolle [facility] SPECIALISTS: None currently PAST MEDICAL HISTORY: Alcohol abuse, PE 2017 PAST SURGICAL HISTORY: No recent surgeries SOCIAL HISTORY: Daily alcohol use. No smoking. No drug use. Not currently working. 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 No wheezing, rhonchi or crackles Cardiovascular: Regular rate and rhythm. No murmur Gastrointestinal: Abdomen is soft and nontender Back: non-tender, no bony abnormalities Neurological: No seizure activity. GCS 15. A&O, nonfocal, normal gait. Normal [id number]. No pronator drift. Strength is symmetric in all 4 limbs. Normal mentation. Skin: Warm and dry, no rash. No petechiae or purpura Extremities: Nontender, no pedal edema. Symmetric range motion. Psychiatric: Mood and affect normal DIFFERENTIAL DIAGNOSES: Including but not limited to acute alcohol intoxication, alcohol abuse, alcohol withdrawal, delirium tremens MDM: 6:14 p.m. Acute alcohol intoxication with no signs of withdrawal or delirium tremens. She is awake and alert, no acute distress. Neuro exam is normal. No seizure- like activity. She has no tremor. Not vomiting. She does have an odor of alcohol about her. She is asking for Ativan for home use which I have respectfully declined. I am not comfortable sending her home with benzodiazepines. I offered sent her to the [facility] with Librium but she is declining this. Her boyfriend is with her and is willing to take her home and I am okay with this. She is clinically sober and ambulatory without difficulty. She will be discharged home to his care with instructions to follow up with primary care physician. We did discuss that she will need to follow up with them or return here should she began to feel any symptoms of withdrawal. Prior to discharge, breathalyzer was performed and was greater than 300. Due to this I will require that her boyfriend signs around and dresser home which he is willing to do. She is discharged in stable condition SUPERVISION: This patient was independently evaluated without direct involvement of or examination by the attending physician. - History Smoking Status: Former smoker - Objective Vital Signs: Initial Vital Signs Temperature (C) 97.9 F 12/28/17 18:01 Heart Rate 104 H 12/28/17 18:01 Respiratory Rate 18 12/28/17 18:01 Blood Pressure 160/98 H 12/28/17 18:01 O2 Sat (%) 96 12/28/17 18:01 O2 Delivery Mode Room Air Allergies/Adverse Reactions: No Allergies [NKA] Allergy (Unknown, Verified 12/09/17 07:43) Unknown Home Medications: Medication Instructions Recorded NK [No Known Home Meds] 12/09/17 Departure - Departure Disposition: Home, Routine, Self-Care Clinical Impression: Acute alcohol intoxication Qualifiers: Complication of substance-induced condition: uncomplicated Qualified Code(s): F10.929 - Alcohol use, unspecified with intoxication, unspecified Condition: Good Instructions: Alcohol Intoxication (ED), Abuse of Alcohol (ED) Additional Instructions: 1. Return to emergency department immediately if she change her mind regarding [facility] transfer with Librium taper 2. Contact her primary care physician tomorrow morning Referrals: Aggie Lowry MD [Primary Care Provider] - As per Instructions
== END 2017-12-28 18:42 | disposition home or self-care (01) ==
DX: F10.929 Alcohol use, unspecified with intoxication, unspecified (principal); Z87.891 Personal history of nicotine dependence

== ENCOUNTER 2018-01-01 15:22 | Emergency (ER) | payer OTHER ==
--- NOTE | 2018-01-01 15:27 | EDPHY ---
H & P Time Seen by Provider: 01/01/18 15:27 - Medical/Surgical History Hx Asthma: No Hx Chronic Respiratory Disease: No Hx Diabetes: No Hx Cardiac Disease: No Hx Renal Disease: No Hx Cirrhosis: No Hx Alcoholism: Yes Hx HIV/AIDS: No Hx Splenectomy or Spleen Trauma: No Other PMH: 3 x Blood clots since May 2017, ETOH Abuse - Social History Smoking Status: Former smoker Constitutional: Initial Vital Signs Heart Rate 97 01/01/18 15:39 Respiratory Rate 16 01/01/18 15:39 Blood Pressure 138/93 H 01/01/18 15:39 O2 Sat (%) 92 01/01/18 15:39 O2 Delivery Mode Room Air Allergies/Adverse Reactions: No Allergies [NKA] Allergy (Unknown, Verified 12/09/17 07:43) Unknown Home Medications: Medication Instructions Recorded NK [No Known Home Meds] 12/09/17 Medical Decision Making ED Course/Re-evaluation: CHIEF COMPLAINT: Alcohol withdrawal. HISTORY OF PRESENT ILLNESS: This patient is a 57 y/o female complaining of alcohol withdrawal. She was states she supposed to check in to [facility] today. She is unsure if staff there is waiting on her. She requests Ativan to help with her withdrawal symptoms. Patient drinks on a daily basis and obtains whatever alcohol is available. Patient has had multiple ER visits over the last several years for the same complaint. Patient denies any injuries denies loss of consciousness denies any recent trauma. Patient denies co-ingestion. Patient denies suicidal or homicidal behavior. REVIEW OF SYSTEMS: A 10 point review of systems was performed and is negative with the exception of the elements mentioned in the history of present illness. PHYSICAL EXAM: General Appearance: Alert, well hydrated, appropriate, and non-toxic appearing. Head: Atraumatic without scalp tenderness or obvious injury Eyes: Pupils equal, round, reactive to light and accommodation, EOMI, no trauma , no injection. Ears: Clear bilaterally, no perforation, normal landmarks Nose: Atraumatic, no rhinorrhea, clear. Throat: There is no erythema or exudates, no lesions, normal tonsils, mucus membranes moist. Neck: Supple, 2+ carotid upstroke, nontender, no lymphadenopathy. Respiratory: No retractions, no distress, no wheezes, and no accessory muscle use. Lungs are clear to auscultation bilaterally. Cardiovascular: Regular rate and rhythm, no murmurs, rubs, or gallops. Bilateral carotid, radial, dorsalis pedis, and posterior tibial pulses intact. Good capillary refill all extremities. Gastrointestinal: Abdomen is soft, nontender, non-distended, no masses, no rebound, no guarding, no peritoneal signs. Musculoskeletal: Normal active ROM of all extremities, atraumatic. Neurological: Alert, appropriate, and interactive. The patient has normal DTRs and non-focal cranial nerves, motor, sensory, and cerebellar exam. Skin: No rashes, good turgor, no nodules on palpation. PAST MEDICAL HISTORY: Alcohol abuse, PE 2017 PAST SURGICAL HISTORY: Noncontributory. SOCIAL HISTORY: Daily alcohol use. No smoking. No drug use. Not currently working. Lives independently. DIFFERENTIAL DIAGNOSIS: The differential diagnosis for the patient's altered mental status included but was not limited to hypoglycemia, infectious process, electrolyte abnormality, head injury, neurologic process, anemia, cardiac process, and intoxicants. MEDICAL DECISION MAKIN57 y/o female presents with alcohol withdrawal. She states she is supposed to go to [facility] today. She is currently clinically sober. We're discharging the patient to the [facility] or other rehabilitation facility of her choice in stable condition. Departure - Departure Disposition: Home, Routine, Self-Care Clinical Impression: Alcohol withdrawal Qualifiers: Complication of substance-induced condition: uncomplicated Qualified Code(s): F10.230 - Alcohol dependence with withdrawal, uncomplicated Condition: Good Instructions: Alcohol Withdrawal (ED) Additional Instructions: May be discharged to rehab facility of choice. Referrals: [facility] Detox 24 Hours [Outside] - As per Instructions Report Scribed for: Mazin Avila Report Scribed by: Belinda Mari Date of Report: 01/01/18 Time of Report: 16:06
[2018-01-01 16:30] VITALS: BP 135/80; PULSE 85; RESP 18; TEMP 96.8; O2SAT 99
== END 2018-01-01 16:28 | disposition home or self-care (01) ==
LOC: EDUNIT#
DX: F10.230 Alcohol dependence with withdrawal, uncomplicated (principal); Z87.891 Personal history of nicotine dependence